=== PATIENT | male | born 1970 | race Caucasian/White ===

== ENCOUNTER → 2018-10-10 11:53 | Outpatient (CLI) | payer OTHER, SELFPAY ==
[2018-09-07 16:05] VITALS: BMI 29.0
--- NOTE | 2018-10-10 11:56 | ECHOD_ITS ---
Reason For Study: Dyspnea/SOB Procedure This was a 2D Doppler, Color Flow transthoracic echocardiogram. Exam performed in department. Left Ventricle Normal LV size. Left ventricular systolic function is normal. The estimated ejection fraction is 55 %. No evidence for diastolic dysfunction. Normal diastology for age. No regional wall motion abnormalities noted. Right Ventricle Normal RV size. Normal systolic function. Atria Normal left atrium. Normal right atrium. Mitral Valve Normal mitral valve. Tricuspid Valve Normal tricuspid valve. Aortic Valve Normal aortic valve. Pulmonic Valve Normal pulmonic valve. Great Vessels Normal aortic root. The pulmonary artery is normal size. Normal inferior vena cava. Pericardium/Pleural No pericardial effusion. MMode/2D Measurements & Calculations LVIDd: 5.0 cm IVSd: 0.99 cm LA dimension: 3.4 cm LVIDs: 3.4 cm LVPWd: 0.88 cm RVDd: 3.8 cm FS: 33.1 % LAV(MOD-bp): 52.5 ml LA A4 area: 17.7 cm2 RA A4 area: 17.7 cm2 LAV(MOD-bp) Indexed: 23.2 ml/m2 LAV(MOD-sp2): 55.6 ml LAV(MOD-sp4): 47.2 ml Time Measurements MV dec time: 0.28 sec Doppler Measurements & Calculations MV E max celestino: 64.9 cm/sec Lat Peak E' Celestino: 13.7 cm/sec Med Peak E' Celestino: 11.5 cm/sec MV A max celestino: 49.4 cm/sec E/E' lat: 4.8 E/E' med: 5.7 MV E/A: 1.3 MV V2 max: 76.4 cm/sec MV P1/2t max celestino: 77.6 cm/sec Ao V2 max: 107.4 cm/sec MV max P.3 mmHg MV P1/2t: 113.9 msec Ao max P.6 mmHg MV V2 mean: 42.3 cm/sec MV dec slope: 199.7 cm/sec2 MV mean P.85 mmHg MVA(P1/2t): 1.9 cm2 MV V2 VTI: 26.0 cm LV V1 max: 101.5 cm/sec PA V2 max: 107.9 cm/sec LV V1 max P.1 mmHg Interpretation Summary Normal LV size. Left ventricular systolic function is normal. The estimated ejection fraction is 55 %. No evidence for diastolic dysfunction. Normal diastology for age. Ordering Physician: Hugo Serrato Referring Physician: Zak Jennings M.D. Performed By: Timothy Dueñas RCS
--- NOTE | 2018-10-10 13:54 | STRESSREP ---
Stress Test Report Exercise stress test. 47-year-old man with a history of chest pain per Stress protocol: Resting EKG demonstrates normal sinus rhythm with a rate of 60 bpm normal intervals are noted resting blood pressures 122/78 mmHg. Patient exercised according to regular Gopal protocol for total duration of 12 minutes the maximum heart rate attained was 142 bpm which was 81% of maximum predicted heart rate the maximum workload was 13.4 metabolic equivalents. At rest there were no ST or T wave changes noted suggest ischemia peak exercise upsloping ST changes only were noted no clinical angina was noted the resting blood pressures 122/78 peak blood pressures 160/70 mmHg. The test was terminated due to leg fatigue. No clinical angina or shortness of breath was present. Conclusion: 1 exercise stress test with no EKG criteria for ischemia at high workload Excellent functional capacity. No clinical angina noted No arrhythmias noted.
== END ==
PROVIDERS: Family Provider Internal Medicine; PCP Internal Medicine; Referring Provider Internal Medicine Cardiovascular Disease; Visit Provider Internal Medicine Cardiovascular Disease
DX: R06.09 Other forms of dyspnea (principal); R06.02 Shortness of breath
CPT/HCPCS: 93017; 93306

== ENCOUNTER → 2018-10-28 08:06 | Outpatient (CLI) | payer OTHER, SELFPAY ==
[2018-09-07 16:05] VITALS: BMI 29.0
[2018-10-28 09:10] LABS: AST(SGOT) 18 U/L (15-37); Alanine Aminotransfer ALT/SGPT 23 U/L (16-61); Albumin, Serum 3.9 g/dL (3.2-5.0); Alkaline Phosphatase 38 U/L (45-117); Anion Gap 6 (5-15); BUN 16 mg/dL (7-18); BUN/Creat Ratio 11.7 RATIO (10-20); Bilirubin, Direct 0.16 mg/dL (0.00-0.30); Calcium,Total 8.7 mg/dL (8.5-10.1); Chloride 108 mmol/L (98-107); Cholesterol 227 mg/dL (200); Creatinine, Serum 1.37 mg/dL (0.70-1.30); EST Glomerular Filtration Rate 59 mL/min (>60); Est Glom Filt Rate - Afr Amer 72 mL/min (>60); Globulin 3.4 g/dL (2.2-4.2); Glucose 82 mg/dL (74-106); High Density Lipoprotein 46 mg/dL; Magnesium 2.2 mg/dL (1.6-2.6); Potassium 4.3 mmol/L (3.5-5.1); Protein, Total 7.3 g/dL (6.4-8.2); Sodium Level 140 mmol/L (136-145); Thyroid Stim Hormone (TSH) 3.73 uIU/mL (0.358-3.74); Triglycerides 108 mg/dL; Very Low Density Lipoprotein 22 mg/dL (5-40)
== END ==
PROVIDERS: Family Provider Internal Medicine; PCP Internal Medicine; Referring Provider Internal Medicine Cardiovascular Disease; Visit Provider Internal Medicine Cardiovascular Disease
DX: E78.5 Hyperlipidemia, unspecified (principal); R06.09 Other forms of dyspnea
CPT/HCPCS: 36415; 80048; 80061; 80076; 83735; 83880; 84443

== ENCOUNTER 2021-03-17 07:09 | Outpatient (CLI) | payer OTHER, SELFPAY ==
[2021-03-17 10:58] LABS: AST(SGOT) 20 U/L (15-37); Alanine Aminotransfer ALT/SGPT 27 U/L (16-61); Alkaline Phosphatase 40 U/L (45-117); Bilirubin, Direct 0.16 mg/dL (0.00-0.30); Cholesterol 244 mg/dL (200); Globulin 3.7 g/dL (2.2-4.2); High Density Lipoprotein 44 mg/dL; Protein, Total 7.7 g/dL (6.4-8.2); Triglycerides 129 mg/dL; Very Low Density Lipoprotein 26 mg/dL (5-40)
== END 2021-03-17 23:59 | disposition short-term general hospital (02) ==
LOC: MTLAB 07:24
PROVIDERS: PCP Internal Medicine; Referring Provider Internal Medicine Cardiovascular Disease; Visit Provider Internal Medicine Cardiovascular Disease
DX: E78.00 Pure hypercholesterolemia, unspecified (principal)
CPT/HCPCS: 36415; 80061; 80076

== ENCOUNTER → 2021-08-06 | Outpatient (CLI) | payer OTHER, SELFPAY ==
[2021-08-06 10:29] LABS: AST(SGOT) 19 U/L (15-37); Alanine Aminotransfer ALT/SGPT 28 U/L (16-61); Alkaline Phosphatase 36 U/L (45-117); Bilirubin, Direct 0.19 mg/dL (0.00-0.30); Cholesterol 218 mg/dL (200); Globulin 3.5 g/dL (2.2-4.2); High Density Lipoprotein 50 mg/dL; Protein, Total 7.5 g/dL (6.4-8.2); Triglycerides 116 mg/dL; Very Low Density Lipoprotein 23 mg/dL (5-40)
== END | disposition home or self-care (01) ==
LOC: MTLAB 07:02
PROVIDERS: PCP Internal Medicine; Referring Provider Internal Medicine Cardiovascular Disease; Visit Provider Internal Medicine Cardiovascular Disease
DX: E78.00 Pure hypercholesterolemia, unspecified (principal)
CPT/HCPCS: 36415; 80061; 80076

== ENCOUNTER → 2021-11-20 | Outpatient (CLI) | payer OTHER, SELFPAY ==
[2021-11-20 10:01] LABS: Hematocrit 41.8 % (40-54); Hemoglobin 14.7 g/dL (13.0-16.5); Mean Corp Hgb Conc 35.2 g/dL (32-36); Mean Corpuscular Hgb 31.7 pg (27.0-32.0); Mean Corpuscular Volume 90.1 fL (80-94); Mean Platelet Vol. 9.8 fl (6.2-12.0); Platelet Count 280 K/mm3 (150-450); RBC Distribution Width CV 12.4 % (11.6-14.6); RBC Distribution Width SD 40.6 fl (35.1-43.9); Red Blood Count 4.64 M/mm3 (4.6-6.2); White Blood Count 4.7 K/mm3 (4.4-11.0)
[2021-11-20 10:39] LABS: BUN 23 mg/dL (7-18); BUN/Creat Ratio 16.8 RATIO (10-20); Creatinine, Serum 1.37 mg/dL (0.70-1.30); EST Glomerular Filtration Rate 59 mL/min (>60); Est Glom Filt Rate - Afr Amer 71 mL/min (>60); Glucose 93 mg/dL (74-106); Protein, Total 7.7 g/dL (6.4-8.2)
[2021-11-20 10:40] LABS: ALB/GLOB Ratio 1.1 RATIO (0.9-2.4); AST(SGOT) 20 U/L (15-37); Alanine Aminotransfer ALT/SGPT 33 U/L (16-61); Alkaline Phosphatase 42 U/L (45-117); Anion Gap 9 (5-15); Calcium,Total 9.1 mg/dL (8.5-10.1); Chloride 107 mmol/L (98-107); Cholesterol 214 mg/dL (200); Globulin 3.7 g/dL (2.2-4.2); High Density Lipoprotein 46 mg/dL; PSA,Total - Annual Screen 2.14 ng/mL (0.00-4.00); Potassium 4.1 mmol/L (3.5-5.1); Sodium Level 140 mmol/L (136-145); Triglycerides 127 mg/dL; Very Low Density Lipoprotein 25 mg/dL (5-40)
[2021-11-20 10:56] LABS: Hepatitis C Antibody Non-Reactive (Nonreactive)
== END | disposition home or self-care (01) ==
PROVIDERS: PCP Internal Medicine; Referring Provider Internal Medicine; Visit Provider Internal Medicine
DX: Z00.00 Encounter for general adult medical examination without abnormal findings (principal); Z11.59 Encounter for screening for other viral diseases; Z11.4 Encounter for screening for human immunodeficiency virus [HIV]; Z12.5 Encounter for screening for malignant neoplasm of prostate
CPT/HCPCS: 36415; 80053; 80061; 84153; 84403; 85027; 86803; G0103

== ENCOUNTER 2021-12-15 08:45 | Day surgery (SDC) | payer OTHER, SELFPAY ==
[2021-12-15] MEDS: Lactated Ringers 1,000 ML 15 ML IV (09:00)
[2021-12-15 09:04] VITALS: BP 136/80; BMI 29.1
--- NOTE | 2021-12-15 10:00 | HP.PCM_ITS ---
HPI - General General Date of Admission: 12/15/21 Date of Service: 12/15/21 HPI Narrative PAULA LOBATO, is a 51 M who presents today for screening colonoscopy. He is not have any abdominal pain. He is not have any cramping. He is not any chest pain or shortness of breath. His only past medical history is mild hypercholesterolemia. He is not having any problems with his bowels. He denies any bleeding per rectum. All other 16 review of systems are negative except as per positive mentioned HPI. [facility] Medical History Alcohol use Cardiology follow-up encounter History of echocardiogram History of pain when walking History of stress test Hyperlipidemia Non-smoker Tinnitus, right Wears contact lenses Home Medications atorvastatin 10 mg tablet 10 mg PO .3 times a weeks #60 tabs 03/17/21 [Rx Last Taken Unknown] Allergy/AdvReac Type Severity Reaction Status Date / Time No Known Allergies Allergy Verified 12/15/21 09:04 Family History Grandfather Myocardial infarction age 55 Father Cancer Mother Diabetes Surgical History H/O arthroscopic knee surgery History of open reduction and internal fixation (ORIF) procedure History of reconstruction of anterior cruciate ligament tear Social History Smoking Status: Never smoker alcohol intake: current alcohol intake frequency: other Alcohol type: beer ROS Review of Systems ROS Unobtainable: other Constitutional Constitutional: Denies fatigue, fever(s), poor appetite, weight gain or weight loss ENT HEENT: Denies mouth lesions Cardiovascular Cardiovascular: Denies abdominal bloating, abdominal edema or abdominal pain Respiratory/Chest Respiratory/Chest: Denies change in mental status, change in phlegm color, chest congestion or chest tightness Gastrointestinal Gastrointestinal: Denies belching, bloating, change in bowel habits, change in stool character, chewing difficulty, coffee ground emesis, constipation, cramping, diarrhea, dyspepsia, dysphagia, early satiety, excessive flatus, fecal incontinence, heartburn, hematemesis, hematochezia, hemorrhoids, loose stools, melena, nausea, odynophagia, rectal bleeding, tenesmus, vomiting or weight changes Genitourinary Genitourinary: Denies abdominal discomfort, burning urination or itching Musculoskeletal Musculoskeletal: Reports as per HPI; Denies muscle weakness or myalgias Integumentary Integumentary: Denies jaundice Neurologic Neurologic: Denies lack of coordination or weakness Psychiatric Psychiatric: Denies confusion, depression, memory loss, mood swings, paranoia or suicidal ideation Endocrine Endocrinology: Denies systems reviewed and no addt'l complaints, except as documented Hematologic/Lymphatic Hematologic/Lymphatic: Denies anemia, easy bleeding, easy bruising or lymphadenopathy Allergic/Immunologic Allergic/Immunologic: Denies systems reviewed and no addt'l complaints, except as documented Vital Signs Vital Signs Vital Signs: 12/15/21 09:04 12/15/21 09:04 Temperature Source Temporal Respiratory Pattern Normal Blood Pressure 136/80 H Blood Pressure Mean 98 Blood Pressure Source Monitor Blood Pressure Position Semi-Fowlers Blood Pressure Location Left Arm Oxygen Delivery Method Room Air Weight Weight: 227 lb 1.218 oz Body Mass Index (BMI) 29.1 Physical Exam Const alert General Appearance: cooperative Orientation / Consciousness: oriented to person HEENT hearing grossly normal bilaterally Head and Scalp: normal to inspection Face and Sinus: face symmetric Nose: external nose normal Mouth: oral and palatal mucosa normal Eyes conjunctivae normal General Eye: normal appearance of both eyes Neck full ROM General: normal visual inspection Lymph Lymphatic: no lymphadenopathy noted Chest inspection of chest normal and palpation of chest normal Chest: symmetrical chest wall rise Resp normal respiratory effort Effort and Inspection: able to speak in complete sentences Cardio regular rate GI non-distended Percussion: normal to percussion Rectal Exam: deferred Neuro Speech: speech normal Gait (Neuro): normal gait Assessment & Plan Assessment/Plan (1) Encounter for screening for malignant neoplasm of colon: PLAN: He was explained alternatives, risk, benefits including not withstanding bleeding, infection, sepsis, perforation, need for emergent turn to . He will have an ASA of 1.
--- NOTE | 2021-12-15 10:24 | OP.COLON_ITS ---
Patient Name: Ar Catalan Procedure Date: 12/15/2021 9:59 AM Date of : 1970 Age: 51 Procedure: Colonoscopy Indications: Screening for colorectal malignant neoplasm Providers: Harpal Cruz DO Medicines: Monitored Anesthesia Care Patient Profile: This is a 51 year old male. Refer to note in patient chart for documentation of history and physical. Last Colonoscopy: none. The patient's first colonoscopy is today. Complications: No immediate complications. Procedure: Pre-Anesthesia Assessment: - Prior to the procedure, a History and Physical was performed, and patient medications and allergies were reviewed. The patient is competent. The risks and benefits of the procedure and the sedation options and risks were discussed with the patient. All questions were answered and informed consent was obtained. Patient identification and proposed procedure were verified by the physician in the pre-procedure area. Mental Status Examination: alert and oriented. Airway Examination: normal oropharyngeal airway and neck mobility. Respiratory Examination: clear to auscultation. CV Examination: normal. Prophylactic Antibiotics: The patient does not require prophylactic antibiotics. Prior Anticoagulants: The patient has taken no previous anticoagulant or antiplatelet agents. ASA Grade Assessment: II - A patient with mild systemic disease. After reviewing the risks and benefits, the patient was deemed in satisfactory condition to undergo the procedure. The anesthesia plan was to use monitored anesthesia care (MAC). Immediately prior to administration of medications, the patient was re-assessed for adequacy to receive sedatives. The heart rate, respiratory rate, oxygen saturations, blood pressure, adequacy of pulmonary ventilation, and response to care were monitored throughout the procedure. The physical status of the patient was re-assessed after the procedure. After I obtained informed consent, the scope was passed under direct vision. Throughout the procedure, the patient's blood pressure, pulse, and oxygen saturations were monitored continuously. The colonoscope was introduced through the anus and advanced to the cecum, identified by appendiceal orifice and ileocecal valve. The colonoscopy was performed without difficulty. The patient tolerated the procedure well. The quality of the bowel preparation was good. Scope In: 10:10:30 AM Scope Withdrawal Time 0 hours 6 minutes 37 seconds Scope Out: 10:19:37 AM Total Procedure Duration Time 0 hours 9 minutes 7 seconds Findings: The perianal and digital rectal examinations were normal. A few small-mouthed diverticula were found in the recto-sigmoid colon and sigmoid colon. The exam was otherwise without abnormality on direct and retroflexion views. Impression: - Diverticulosis in the recto-sigmoid colon and in the sigmoid colon. - The examination was otherwise normal on direct and retroflexion views. - No specimens collected. Recommendation: - Discharge patient to home. - Resume previous diet. - Continue present medications. - Repeat colonoscopy in 10 years for screening purposes. Procedure Code(s): --- Professional --- G0121, Colorectal cancer screening; colonoscopy on individual not meeting criteria for high risk CPT copyright 2017 [employer]. All rights reserved. The codes documented in this report are preliminary and upon hr receptionist review may be revised to meet current compliance requirements. Harpal Cruz DO 12/15/2021 10:23:54 AM This report has been signed electronically. Number of Addenda: 0 Note Initiated On: 12/15/2021 9:59 AM
[2021-12-15 10:25] VITALS: BP 136/80; BP 89/53; PULSE 67; RESP 16; TEMP 36.7; O2SAT 98
--- NOTE | 2021-12-15 10:25 | OP.CCLET_ITS ---
12/15/2021 Zak Jennings [address] [place] [address] Re : Colonoscopy procedure for Ar Catalan Dear Dr. Jennings This procedure was performed on Wednesday, December 15, 2021. My impressions and recommendations are as follows: Impressions : - Diverticulosis in the recto-sigmoid colon and in the sigmoid colon. - The examination was otherwise normal on direct and retroflexion views. - No specimens collected. Recommendations : - Discharge patient to home. - Resume previous diet. - Continue present medications. - Repeat colonoscopy in 10 years for screening purposes. My findings are described in the full procedure note, which is enclosed. If I can be of further assistance, please feel free to contact me at . Sincerely, Harpal Cruz, 12/15/2021 10:23:54 AM This report has been signed electronically.
[2021-12-15 10:30] VITALS: BP 111/68; BP 136/80; PULSE 60; RESP 16; O2SAT 98
[2021-12-15 10:35] VITALS: BP 109/71; BP 136/80; PULSE 54; RESP 16; O2SAT 98
[2021-12-15 10:40] VITALS: BP 120/90; BP 136/80; PULSE 60; RESP 16; TEMP 36.4; O2SAT 99
[2021-12-15 11:01] VITALS: BP 136/80
== END 2021-12-15 11:02 | disposition home or self-care (01) ==
LOC: EN 08:47 → AC 08:48
PROVIDERS: PCP Internal Medicine; Referring Provider Internal Medicine; Visit Provider Internal Medicine Gastroenterology
PROC: 0DJD8ZZ Inspection of Lower Intestinal Tract, Via Natural or Artificial Opening Endoscopic (ICD-10-PCS; CPT 45378; principal; 2021-12-15 09:40)
DX: Z12.11 Encounter for screening for malignant neoplasm of colon (principal); K57.30 Diverticulosis of large intestine without perforation or abscess without bleeding; E78.00 Pure hypercholesterolemia, unspecified; Z79.899 Other long term (current) drug therapy
CPT/HCPCS: G0121; J7120; J2405

== ENCOUNTER → 2022-04-13 | Outpatient (CLI) | payer OTHER, SELFPAY ==
--- NOTE | 2022-04-13 15:56 | MRI_ITS ---
INDICATION: Hip and back pain. Pain in left leg. EXAMINATION: MRI - MR Spine Lumbar W/O Contrast TECHNIQUE: Multiplanar and multisequence MR images of the lumbar spine without contrast. IV Contrast Dosage and Agent: None. COMPARISON: None. FINDINGS: VERTEBRAE: Normal bone marrow signal. No fracture or acute compression deformity. Mild chronic superior endplate degenerative change at L3 L5 and S1. Normal lumbar spine alignment. CORD: Normal position and signal intensity of the conus medullaris. Conus medullaris at T12-L1. L1/L2: Normal disc height and morphology. Normal spinal canal, lateral recesses and neuroforamina. L2/L3: Normal disc height and morphology. Normal spinal canal, lateral recesses and neuroforamina. L3/L4: Circumferential disc bulge with mild ligamentum flavum hypertrophy, together causing minimal spinal canal narrowing, mild bilateral lateral recess narrowing with disc likely approximating the L4 nerve rootlets, and mild bilateral neural foraminal stenosis. L4/L5: Minimal circumferential disc bulge with mild ligamentum flavum hypertrophy and facet arthropathy together causing minimal spinal canal narrowing. Mild left lateral recess narrowing with disc likely approximating the left L5 nerve rootlets. Mild bilateral neural foraminal stenosis. L5/S1: Minimal posterior disc bulge with mild bilateral facet hypertrophy together causing no significant spinal canal stenosis or lateral recess narrowing. Mild bilateral lateral recess narrowing.. SOFT TISSUES: Unremarkable. MRI/Spine Lumbar (Routine) IMPRESSION: Mild multilevel spondylosis as above. Correlate with distribution of symptoms. Electronically Signed: Juan Francisco Izquierdo MD at 6:53 EST ,
== END | disposition home or self-care (01) ==
PROVIDERS: PCP Internal Medicine; Visit Provider Family Medicine
DX: Z03.89 Encounter for observation for other suspected diseases and conditions ruled out (principal)
CPT/HCPCS: 72148

== ENCOUNTER → 2022-10-22 | Outpatient (CLI) | payer OTHER, SELFPAY ==
[2022-10-22 18:43] LABS: AST(SGOT) 22 U/L (15-37); Alanine Aminotransfer ALT/SGPT 32 U/L (16-61); Albumin, Serum 4.3 g/dL (3.2-5.0); Alkaline Phosphatase 44 U/L (45-117); Bilirubin, Direct 0.19 mg/dL (0.00-0.30); Cholesterol 198 mg/dL (200); Globulin 3.6 g/dL (2.2-4.2); High Density Lipoprotein 53 mg/dL; Protein, Total 7.9 g/dL (6.4-8.2); Triglycerides 121 mg/dL; Very Low Density Lipoprotein 24 mg/dL (5-40)
== END | disposition home or self-care (01) ==
LOC: MTLAB 15:53
PROVIDERS: PCP Internal Medicine; Visit Provider Internal Medicine Cardiovascular Disease
DX: E78.5 Hyperlipidemia, unspecified (principal)
CPT/HCPCS: 36415; 80061; 80076

== ENCOUNTER → 2023-12-21 | Outpatient (CLI) | payer OTHER, SELFPAY ==
--- OUTSIDE RECORDS SUMMARY | 2023-12-21 07:06 | XMS RPT_ITS | CCD ---
Author Organization [facility] ion [facility] Care Team Providers Care Manager Insurance Name Role Phone Fast, Blanca A Unavailable Zahira, Fidelia Unavailable Unavailable Zak Anand MD Primary Care Provider [phone] Zak Anand MD Primary Care Provider [phone] Zak Anand MD Primary Care Provider [phone] Fast DO, Blanca A Unavailable Zahira ALVA, Fidelia Unavailable Unavailable Slarb RESIDENTIAL SALES REP, Lavern Unavailable Unavailable Fast DO, Blanca A Unavailable FAST, BLANCA A Attending Unavailable FAST, BLANCA A Primary Care Unavailable ZAK ANAND Primary Care Unavailable CHARLES MAKI Referring Unavailable ZAK ANAND Primary Care Unavailable SURI DANIEL Referring Unavailable ZAK ANAND Primary Care Unavailable SURI DANIEL Referring Unavailable ZAK ANAND Primary Care Unavailable SURI DANIEL Attending Unavailable ZAK ANAND Primary Care Unavailable CHARLES MAKI Attending Unavailable Zak Anand MD Primary Care Provider ZAK ANAND Primary Care Unavailable JOSUÉ CHANDLER Referring Unavailable JOSUÉ CHANDLER Attending Unavailable MILTON OVALLE Attending Unavailable ZAK ANAND Primary Care Unavailable JOSUÉ CHANDLER Referring Unavailable JOSUÉ CHANDLER Admitting Unavailable Zak Anand MD Primary Care Provider [phone] Medications Current Medications Medication Drug Class(es) Dates Sig (Normalized) Sig (Original) atorvastatin (8 sources) HMG-CoA Reductase Inhibitor take 1 tablet by mouth three times weekly atorvastatin calcium (LIPITOR ORAL) Take by mouth. Take 1 tablet three times weekly. Active take 1 tablet by yesenia th three times weekly atorvastatin calcium (LIPITOR ORAL) Take by mouth. Take 1 tablet three times weekly. 0 Active Comment on above: Take by mouth. Take 1 tablet three times weekly. meloxicam 15 mg oral tablet (6 sources) Nonsteroidal Anti-inflammatory Drug Start: take 1 tablet by mouth once daily at mealtime meloxicam (MOBIC) 15 mg tablet Take 1 tablet by mouth once daily. With food. 90 tablet 2 09/07/2023 Active Start: 09-14-2022 End: 09-07-2023 take 1 tablet by mouth once daily at mealtime meloxicam (MOBIC) 15 mg tablet Take 1 tablet by mouth once daily. With food. 90 tablet 2 09/14/2022 09/07/2023 Discontinued Start: 12-10-2021 take 1 tablet by yesenia th once daily at mealtime meloxicam (MOBIC) 15 mg tablet Take 1 tablet by mouth once daily. With food. 30 tablet 3 12/10/2021 Active Comment on above: Take 1 tablet by yesenia th once daily. With food. polyethylene glycol 3350 590534 mg / potassium chloride 2980 mg / sodium bicarbonate 6720 mg / sodium chloride 5840 mg / sodium sulfate 51312 mg powder for oral solution (1 source) Osmotic Laxative Start: 10-30-2021 End: 10-30-2021 peg 3350-electrolytes (COLYTE) 240-22.72-6.72 -5.84 gram solution Indications: Special screening for malignant neoplasms, colon Take 4,000 mL by mouth one time only for 1 dose. 4000 mL 0 10/30/2021 10/30/2021 Active Comment on above: Take 4,000 mL by yesenia th one time only for 1 dose. Problems Active Problems Problem Classification Problem Date Documented Da te Episodic/Chronic Administrative/social admission (4 sources) Patient encounter status; Translations: [Travel advice encounter] 06-30-2021 Episodic Disorders of lipid metabolism (17 sources) Hyperlipidemia; Translations: [Other hyperlipidemia] Onset: 05-10-2017 05-10-2017 Chronic Immunizations and screening for infectious disease (8 sources) Contact with and (suspected) exposure to other viral communicable diseases; Translations: [Patient encounter status] 02-12-2020 Episodic Osteoarthritis (4 sources) Arthritis of hip; Translations: [Unilateral primary osteoarthritis, unspecified hip] Onset: 09-05-2022 Chronic Other connective tissue disease (5 sources) Hip joint prosthesis present; Translations: [Presence of left artificial hip joint] Onset: 06-08-2023 05-25-2023 Chronic Other connective tissue disease (2 sources) Presence of left artificial hip joint; Translations: [Presence of left artificial hip joint] Onset: 06-08-2023 Chronic Other non-traumatic joint disorders (3 sources) Hip pain; Translations: [Pain in left hip] Episodic Past or Other Problems Problem Classification Problem Date Documented Da te Episodic/Chronic Other and unspecified benign neoplasm (9 sources) Lipoma of trunk; Translations: [Benign lipomatous neoplasm of skin and subcutaneous tissue of trunk] Onset: 12-17-2014 Resolved: 03-16-2023 12-17-2014 Episodic Other non-traumatic joint disorders (1 source) Pain in left hip; Translations: [Pain in left hip] Onset: 09-04-2022 Episodic Other screening for suspected conditions (not mental disorders or infectious disease) (11 sources) Azotemia; Translations: [Other specified abnormal findings of blood chemistry] Onset: 05-10-2017 Resolved: 03-16-2023 01-19-2019 Episodic Unclassified (1 source) Exposure to SARS virus Unclassified (2 sources) Results Test Name Value Interpretation Reference Range Facility XR HIP LEFT WITH PELVIS 2-3 VIEWS (ROUTINE)on 06-08-2023 XR HIP LEFT WITH PELVIS 2-3 VIEWS (ROUTINE) EXAMINATION: XR HIP LEFT WITH PELVIS 2-3 VIEWS (ROUTINE) 06/08/2023 8:17 AM HISTORY: ORDERING SYSTEM PROVIDED HISTORY: evaluation, TECHNOLOGIST PROVIDED HISTORY: Illness/Other Reason for exam: FU imaging for hip surgery- left -6weeks ago pt states he is feeling great denies any pain or complications at this time Cancer History: n Surgery, RadiationHistory: n Encounter Type: Subsequent/Follow-up Additional signs and symptoms: upright pelvis included per Order ORDERING SYSTEM PROVIDED DIAGNOSIS CODES: Z96.642 Presence of left artificial hip joint IMPRESSION: FINDINGS/ Arthroplasty without complication. [employer]/Ortho-tag Workstation ID: [id number] Dictated by: DOMONIQUE LUIS on WedJun 09, 2023 9:53:27 AM EDT Transcribed by: WILLAM UREÑA on WedJun 09, 2023 10:12:38 AM EDT Finalized by: DOMONIQUE LUIS on WedJun 09, 2023 10:14:[address] [facility] Comment on above: Order Comment: Injur y/Trauma or Illness?:Illness/Other How long have you had these symptoms (acute/chronic)?:Acute Reason for exam?:FU imaging for hip surgery- left -6weeks ago pt states he is feeling great denies any pain or complications at this time History of cancer?:n Surgeries, chemotherapy, or radiation?:n Type of Exam?:Subsequent/Follow-up Additional signs and symptoms?:upright pelvis included per DR. Senia Luong 03-22-2023 CNPN Telephone (INTMWS) AR CATALAN ([id number]) 1970 M Date Time Provider Department 03/22/23 ZAK ANAND INTWS During your visit today, we recorded the following information about you: Gregg Gilliland LPN 03/22/2023 5:06 PM Signed called and asked to have the VIT D lab and x-ray faxed to pt's surgeon Dr. Chandler .. Done. Also mailed most recent copies of lab work to pt. Done. Gregg Gilliland LPN Allergies As of Date: 03/22/2023 (No Known Allergies) Date Reviewed: 03/16/2023 Reviewed by: Suri Daniel APRN.SHALE MINER - Fully Assessed Reason for Visit: Release Of Medical Records [2017] Prescriptions as of 03/22/2023 - meloxicam (MOBIC) 15 mg tablet Take 1 tablet by mouth once daily. With food. - atorvastatin calcium (LIPITOR ORAL) Take by mouth. Take 1 tablet three times weekly. Problem List As Of Date 03/22/2023 Noted Resolved Lipoma of torso [D17.1] 12/17/2014 03/16/2023 Other hyperlipidemia [E78.49] 05/10/2017 Azotemia [R79.89] 05/10/2017 03/16/2023 Primary osteoarthritis of both hips [M16.0] 09/05/2022 Encounter Status:Closed by GREGG GILLILAND on 03/22/23 [facility] Cherise 03-17-2023 CHLOEN Telephone (INTMWS) AR CATALAN ([id number]) 1970 Date Time Provider Department 03/17/23 SURI DANIEL INTLeighannWS During your visit today, we recorded the following information about you: Derek Flanagan Ma 03/17/2023 8:34 AM Signed ----- Message from Suri Daniel APRN.SHALE MINER sent at 03/17/2023 7:36 AM EST ----- Please let the patient know his lab results were all within an acceptable range and chest x-ray was normal. We will fax these along with the pre-op clearance form today Suri Daniel APRN.Derek Bernardo Ma 03/17/2023 8:39 AM Signed Detailed message left on patient's voicemail of results. Advised his pre op forms and all results were faxed as well. Provided number for call back with any questions. Allergies As of Date: 03/17/2023 (No Known Allergies) Date Reviewed: 03/16/2023 Reviewed by: Suri Daniel APRN.SHALE MINER - Fully Assessed Reason for Visit: Forms/results [Other] Prescriptions as of 03/17/2023 - meloxicam (MOBIC) 15 mg tablet Take 1 tablet by mouth once daily. With food. - atorvastatin calcium (LIPITOR ORAL) Take by mouth. Take 1 tablet three times weekly. Problem List As Of Date 03/17/2023 Noted Resolved Lipoma of torso [D17.1] 12/17/2014 03/16/2023 Other hyperlipidemia [E78.49] 05/10/2017 Azotemia [R79.89] 05/10/2017 03/16/2023 Primary osteoarthritis of both hips [M16.0] 09/05/2022 Encounter Status:Closed by DEREK FLANAGAN MA on 03/17/23 Normal [facility] 25(OH)D3 SerPl-ncon 2023 25-hydroxyvitamin D3 [Mass/Vol] 40.5 ng/mL Normal 31.0-80.0 [facility] Comment on above: Order Comment: Andre mac Type: BLOOD SPECIMEN Ordering Facility: [facility] Address: [address] [place] [address] Result Comment: Clas sification of 25 OH Vitamin D status: Deficiency/Insufficiency: < or = 30 ng/ml. Sufficiency/Optimal Levels: 31-80 ng/mL Toxicity: > 100 ng/mL. Test performed by chemiluminescent immunoassay. Performed By: #### 1 989-3 #### [facility] CLIA [id number] [address] [place] [address] [place] CBC panel Auto (Bld)on 03-16 Erythrocyte distribution width (RBC) [Ratio] 12.3 % Normal 11.5-15.0 [facility] Comment on above: Order Comment: Andre mac Type: BLOOD SPECIMEN Ordering Facility: [facility] Address: [address] [place] [address] Performed By: #### 5 8410-2 #### [facility] CLIA [id number] [address] [place] [address] [place] Hematocrit (Bld) [Volume fraction] 43.5 % Normal 39.0-51.0 [facility] Comment on above: Order Comment: Andre mac Type: BLOOD SPECIMEN Ordering Facility: [facility] Address: [address] [place] [address] Performed By: #### 5 8410-2 #### [facility] CLIA [id number] [address] [place] [address] [place] Hemoglobin (Bld) [Mass/Vol] 14.6 g/dL Normal 13.0-17.0 [facility] Comment on above: Order Comment: Speci men Type: BLOOD SPECIMEN Ordering Facility: [facility] Address: [address] [place] [address] Performed By: #### 5 8410-2 #### [facility] CLIA [id number] [address] [place] [address] [place] MCH (RBC) [Entitic mass] 31.1 pg Normal 26.0-34.0 [facility] Comment on above: Order Comment: Speci men Type: BLOOD SPECIMEN Ordering Facility: [facility] Address: [address] [place] [address] Performed By: #### 5 8410-2 #### [facility] CLIA [id number] [address] [place] [address] [place] MCHC (RBC) [Mass/Vol] 33.6 g/dL Normal 30.5-36.0 [facility] Comment on above: Order Comment: Speci men Type: BLOOD SPECIMEN Ordering Facility: [facility] Address: [address] [place] [address] Performed By: #### 5 8410-2 #### [facility] CLIA [id number] [address] [place] [address] [place] MCV (RBC) [Entitic vol] 92.8 fL Normal 80.0-100.0 [facility] Comment on above: Order Comment: Speci men Type: BLOOD SPECIMEN Ordering Facility: [facility] Address: [address] [place] [address] Performed By: #### 5 8410-2 #### [facility] CLIA [id number] [address] [place] [address] [place] Nucleated RBC (Bld) [#/Vol] 10*3/uL Normal <0.01 [facility] Comment on above: Order Comment: Speci men Type: BLOOD SPECIMEN Ordering Facility: [facility] Address: [address] [place] [address] Performed By: #### 5 8410-2 #### [facility] CLIA [id number] [address] [place] [address] [place] Platelet mean volume (Bld) [Entitic vol] 9.6 fL Normal 9.0-12.7 [facility] Comment on above: Order Comment: Speci men Type: BLOOD SPECIMEN Ordering Facility: [facility] Address: [address] [place] [address] Performed By: #### 5 8410-2 #### [facility] CLIA [id number] [address] [place] [address] [place] Platelets (Bld) [#/Vol] 254 10*3/uL Normal 150-400 [facility] Comment on above: Order Comment: Speci men Type: BLOOD SPECIMEN Ordering Facility: [facility] Address: [address] [place] [address] Performed By: #### 5 8410-2 #### [facility] CLIA [id number] [address] [place] [address] [place] RBC (Bld) [#/Vol] 4.69 10*6/uL Normal 4.20-6.00 [facility] Comment on above: Order Comment: Speci men Type: BLOOD SPECIMEN Ordering Facility: [facility] Address: [address] [place] [address] Performed By: #### 5 8410-2 #### [facility] CLIA [id number] [address] [place] [address] [place] WBC (Bld) [#/Vol] 4.14 10*3/uL Normal 3.70-11.00 [facility] Comment on above: Order Comment: Speci men Type: BLOOD SPECIMEN Ordering Facility: [facility] Address: [address] [place] [address] Performed By: #### 5 8410-2 #### [facility] CLIA [id number] [address] [place] [address] [place] CNOVon 03-16-2023 CNOV Office Visit (INTMWS ) AR CATALAN ([id number]) 1970 M Date Time Provider Department 03/16/23 8:00 AM SURI DANIEL INTMWS During your visit today, we recorded the following information about you: Pulse Respiration Blood pressure Weight 68/minute 16/minute 134/78 106.6 kg Height 1.86 m Suri Daniel, BRAKESHOE REPAIRER.SHALE MINER 03/16/2023 9:17 AM Signed CC: Patient presents with: Pre-Op Exam HPI Ar Catalan is a 52 year old male who presents today for pre-op evaluation. Surgical Procedure: Left hip remodeling arthroplasty Date of Procedure: 04/23/23 Surgeon: Josué Chandler MD PAT date: NA Diabetes No Hypertension requiring medication No Congestive Heart Failure No Current Smoker within 1 Year No COPD/asthma No MELIDA No Dialysis No Acute renal failure No Steroid use for chronic condition No Disseminated cancer No Review of Systems Constitutional: Negative for chills, diaphoresis, fatigue, fever and unexpected weight change. HENT: Negative for trouble swallowing. Respiratory: Negative for cough, shortness of breath and wheezing. Cardiovascular: Negative for chest pain, palpitations and leg swelling. Gastrointestinal: Negative for abdominal pain, blood in stool, constipation, diarrhea, nausea and vomiting. Genitourinary: Negative for decreased urine volume, difficulty urinating, hematuria and urgency. Musculoskeletal: Negative for back pain, myalgias and neck pain. Skin: Negative for pallor. Neurological: Negative for dizziness, tremors, syncope, weakness, light-headedness and headaches. Hematological: Negative for adenopathy. Does not bruise/bleed easily. Psychiatric/Behavioral: Negative for dysphoric mood and sleep disturbance. The patient is not nervous/anxious. PAST MEDICAL HISTORY Diagnosis Date Azotemia 05/10/2017 Lipoma of torso 12/17/2014 Other hyperlipidemia 05/10/2017 Primary osteoarthritis of both hips 09/05/2022 PAST SURGICAL HISTORY Procedure Laterality Date KNEE ARTHROSCOPY Right 12/07/14 repair meniscus PAST SURGICAL HISTORY OF Right 2011 ACL Reconstruction PAST SURGICAL HISTORY OF Right 1994 ORIF right tib fractures, hardware removed. ALLERGIES Patient has no known allergies. MEDICATIONS meloxicam (MOBIC) 15 mg tablet Take 1 tablet by mouth once daily. With food. atorvastatin calcium (LIPITOR ORAL) Take by mouth. Take 1 tablet three times weekly. FAMILY HISTORY Problem Relation Age of Onset Diabetes Mother Kidney Disease Mother Cancer Father neuroendocrine No Known Problems Brother Coronary Artery Disease Maternal Grandfather [place] at age 55 Social History Tobacco Use Smoking status: Never Smokeless tobacco: Never Vaping Use Vaping Use: Never used Substance Use Topics Alcohol use: Yes Alcohol/week: 1.0 standard drink of alcohol Types: 1 Cans of Beer (12oz) per week Comment: occasional Beer Drug use: No BP 134/78 Pulse 68 Resp 16 Ht 186 cm (6' 1.23 ) Wt 106.6 kg (235 lb) SpO2 96% BMI 30.81 kg/m? Physical Exam Vitals reviewed. Constitutional: Appearance: Normal appearance. HENT: Right Ear: Tympanic membrane normal. Left Ear: Tympanic membrane normal. Mouth/Throat: Mouth: Mucous membranes are moist. Pharynx: Oropharynx is clear. Eyes: Conjunctiva/sclera: Conjunctivae normal. Neck: Thyroid: No thyroid mass, thyromegaly or thyroid tenderness. Cardiovascular: Rate and Rhythm: Normal rate and regular rhythm. Pulses: Normal pulses. Heart sounds: Normal heart sounds. No murmur heard. Musculoskeletal: Cervical back: Neck supple. Right lower leg: No edema. Left lower leg: No edema. Lymphadenopathy: Cervical: No cervical adenopathy. Neurological: Mental Status: He is alert. Diagnoses/Plan 1. Pre-operative evaluation EKG today normal sinus rhythm Check CMP, CBC, chest x-ray per pre-op requirements There is no known pertinent medical condition which may affect tabitha-operative course VELAZQUEZ risk: Patient is scheduled for a intermediate-risk procedure. Risk of 0% calculated using the NSQIP surgical risk calculator ASA class: ASA 1- Normal healthy patient Functional status: Independent The patient is medically optimized for surgery - ECG COMPLETE - CBC - COMP METABOLIC PANEL - VITAMIN D 25 HYDROXY - XR CHEST 2V FRONTAL/LAT 2. Other hyperlipidemia - ICD9: 272.4, ICD10: E78.49 recheck - LIPID PANEL BASIC Suri Daniel APRN.SHALE MINER Allergies As of Date: 03/16/2023 (No Known Allergies) Date Reviewed: 03/16/2023 Reviewed by: Suri Daniel APRN.SHALE MINER - Fully Assessed Reason for Visit: Pre-Op Exam [87] Primary Visit Diagnosis:Preop exam for internal medicine [Z01.818] Other Visit Diagnosis:Other hyperlipidemia [E78.49] Order(s):ECG COMPLETE [ECG01] Order #: [id number] CBC [SQCBC] Order #: [id number] FUTURE COMP METABOLIC PANEL [SQCMP] Order (more content not included)... Normal [facility] Comprehensive metabolic 2000 panelon 03-16-2023 Albumin [Mass/Vol] 4.7 g/dL Normal 3.9-4.9 [facility] Comment on above: Order Comment: Andre mac Type: BLOOD SPECIMEN Ordering Facility: [facility] Address: [address] [place] [address] Performed By: #### 1 989-3 #### [facility] CLIA [id number] [address] [place] [address] [place] ALP [Catalytic activity/Vol] 37 U/L Low 38-113 [facility] Comment on above: Order Comment: Speci men Type: BLOOD SPECIMEN Ordering Facility: [facility] Address: [address] [place] [address] Performed By: #### 1 989-3 #### [facility] CLIA [id number] [address] [place] [address] [place] ALT [Catalytic activity/Vol] 17 U/L Normal 10-54 [facility] Comment on above: Order Comment: Speci men Type: BLOOD SPECIMEN Ordering Facility: [facility] Address: [address] [place] [address] Performed By: #### 1 989-3 #### [facility] CLIA [id number] [address] [place], [place] [id number] [place] Anion gap [Moles/Vol] 10 mmol/L Normal 9-18 [facility] Comment on above: Order Comment: Speci men Type: BLOOD SPECIMEN Ordering Facility: [facility] Address: [address] [place] [address] Performed By: #### 1 989-3 #### [facility] CLIA [id number] [address] [place] [address] [place] AST [Catalytic activity/Vol] 22 U/L Normal 14-40 [facility] Comment on above: Order Comment: Speci men Type: BLOOD SPECIMEN Ordering Facility: [facility] Address: [address] [place] [address] Performed By: #### 1 989-3 #### [facility] CLIA [id number] [address] [place] [address] [place] Bilirubin [Mass/Vol] 0.9 mg/dL Normal 0.2-1.3 [facility] Comment on above: Order Comment: Speci men Type: BLOOD SPECIMEN Ordering Facility: [facility] Address: [address] [place] [address] Performed By: #### 1 989-3 #### [facility] CLIA [id number] [address] [place] [address] [place] Calcium [Mass/Vol] 9.8 mg/dL Normal 8.5-10.2 [facility] Comment on above: Order Comment: Speci men Type: BLOOD SPECIMEN Ordering Facility: [facility] Address: [address] [place] [address] Performed By: #### 1 989-3 #### [facility] CLIA [id number] [address] [place] [address] [place] Chloride [Moles/Vol] 105 mmol/L Normal 97-105 [facility] Comment on above: Order Comment: Speci men Type: BLOOD SPECIMEN Ordering Facility: [facility] Address: [address] [place] [address] Performed By: #### 1 989-3 #### [facility] CLIA [id number] [address] [place] [address] [place] CO2 [Moles/Vol] 25 mmol/L Normal 22-30 [facility] Comment on above: Order Comment: Speci men Type: BLOOD SPECIMEN Ordering Facility: [facility] Address: [address] [place] [address] Performed By: #### 1 989-3 #### [facility] CLIA [id number] [address] [place] [address] [place] Creatinine [Mass/Vol] 1.34 mg/dL High 0.73-1.22 [facility] Comment on above: Order Comment: Speci men Type: BLOOD SPECIMEN Ordering Facility: [facility] Address: [address] [place] [address] Performed By: #### 1 989-3 #### [facility] CLIA [id number] [address] [place] [address] [place] Creatinine and Glomerular filtration rate.predicted panel (S/P/Bld) 64 mL/min/1.73m??? Normal >=60 [facility] Comment on above: Order Comment: Speci men Type: BLOOD SPECIMEN Ordering Facility: [facility] Address: [address] [place] [address] Result Comment: Hannah mated Glomerular Filtration Rate (eGFR) is calculated using the 2020 CKD-EPI creatinine equation. This equation utilizes serum creatinine, sex, and age as parameters. The creatinine assay has traceable calibration to isotope dilution-mass spectrometry. Refer to KDIGO guidelines for clinical interpretation. In patients with unstable renal function, e.g. those with acute kidney injury, the eGFR may not accurately reflect actual GFR. Performed By: #### 1 989-3 #### [facility] CLIA [id number] [address] [place] [address] [place] Glucose [Mass/Vol] 88 mg/dL Normal 74-99 [facility] Comment on above: Order Comment: Andre mac Type: BLOOD SPECIMEN Ordering Facility: [facility] Address: [address] [place] [address] Result Comment: The [place] [employer] (ADA) provides guidance for cutoff values for fasting glucose and random glucose. The ADA defines fasting as no caloric intake for at least 8 hours. Fasting plasma glucose results between 100 to 125 mg/dL indicate increased risk for diabetes (prediabetes). Fasting plasma glucose results greater than or equal to 126 mg/dL meet the criteria for diagnosis of diabetes. In the absence of unequivocal hyperglycemia, results should be confirmed by repeat testing. In a patient with classic symptoms of hyperglycemia or hyperglycemic crisis, random plasma glucose results greater than or equal to 200 mg/dL meet the criteria for diagnosis of diabetes. Reference: Standards of Medical Care in Diabetes 2016, [place] [employer]. Diabetes Care. 2016.39(Suppl 1). Performed By: #### 1 989-3 #### [facility] CLIA [id number] [address] [place] [address] [place] Potassium [Moles/Vol] 4.7 mmol/L Normal 3.7-5.1 [facility] Comment on above: Order Comment: Andre mac Type: BLOOD SPECIMEN Ordering Facility: [facility] Address: [address] [place], [place] [id number] Performed By: #### 1 989-3 #### [facility] CLIA [id number] [address] [place] [address] [place] Protein [Mass/Vol] 7.3 g/dL Normal 6.3-8.0 [facility] Comment on above: Order Comment: Andre mac Type: BLOOD SPECIMEN Ordering Facility: [facility] Address: [address] [place] [address] Performed By: #### 1 989-3 #### [facility] CLIA [id number] [address] [place] [address] [place] Sodium [Moles/Vol] 140 mmol/L Normal 136-144 [facility] Comment on above: Order Comment: Speci men Type: BLOOD SPECIMEN Ordering Facility: [facility] Address: [address] [place] [address] Performed By: #### 1 989-3 #### [facility] CLIA [id number] [address] [place] [address] [place] Urea nitrogen [Mass/Vol] 22 mg/dL Normal 9-24 [facility] Comment on above: Order Comment: Speci men Type: BLOOD SPECIMEN Ordering Facility: [facility] Address: [address] [place] [address] Performed By: #### 1 989-3 #### [facility] CLIA [id number] [address] [place] [address] [place] ECG COMPLETEon 03-16-2023 ECG COMPLETE Ventricular Rate : 6 4 BPM Atrial Rate : 64 BPM P-R Interval : 176 ms QRS Duration : 86 ms Q-T Interval : 412 ms QTC Calculation(Bazett) : 425 ms Calculated P Troy : 59 degrees Calculated R Troy : 56 degrees Calculated T Troy : 37 degrees NORMAL SINUS RHYTHM NORMAL ECG Confirmed by JAGRUTI TINOCO D.O. ([id number]) on 03/30/2023 12:38:08 PM NAME : AR CATALAN PID : [id number] : 1970 Gender : Male Race : ORD : [id number] Procedure Date : Mar 16 2023 07:55:35 Edit Date : Mar 30 2023 12:38:12 Diagnosis: NORMAL SINUS RHYTHM NORMAL ECG Confirmed by JAGRUTI TINOCO D.O. ([id number]) on 03/30/2023 12:38:08 PM Test Reason : Z01.818 Preop exam for internal medicine Location : 185 : [facility] Overread By : JAGRUTI TINOCO D.O. Edited By : JAGRUTI TINOCO D.O. Referred By : N OLDER, Acquired by : Es FLANAGAN, Normal [facility] Lipid 1996 panelon 4 Cholesterol [Mass/Vol] 187 mg/dL Normal <200 [facility] Comment on above: Order Comment: Speci men Type: BLOOD SPECIMEN Ordering Facility: [facility] Address: [address] [place] [address] Result Comment: <200 mg/dL, Desirable 200-239 mg/dL, Borderline high >239 mg/dL, High Performed By: #### 1 989-3 #### [facility] CLIA [id number] [address] [place] [address] [place] Cholesterol in HDL [Mass/Vol] 45 mg/dL Normal >39 [facility] Comment on above: Order Comment: Speci men Type: BLOOD SPECIMEN Ordering Facility: [facility] Address: [address] [place] [address] Result Comment: 40-5 9 mg/dL, Acceptable >59 mg/dL, High: Negative risk factor for coronary heart disease <40 mg/dL, Low: Positive risk factor for coronary heart disease Performed By: #### 1 989-3 #### [facility] CLIA [id number] [address] [place] [address] [place] Cholesterol in LDL [Mass/Vol] 125 mg/dL High <100 [facility] Comment on above: Order Comment: Speci men Type: BLOOD SPECIMEN Ordering Facility: [facility] Address: [address] [place] [address] Result Comment: <100 mg/dL, Optimal 100-129 mg/dL, Near optimal/above optimal 130-159 mg/dL, Borderline high 160-189 mg/dL, High >189 mg/dL, Very high Secondary prevention optimal LDL Cholesterol levels are recommended to be < 70 mg/dL Performed By: #### 1 989-3 #### [facility] CLIA [id number] [address] [place] [address] [place] Cholesterol in LDL/Cholesterol in HDL [Mass ratio] 2.78 {ratio} High <2.54 [facility] Comment on above: Order Comment: Andre mac Type: BLOOD SPECIMEN Ordering Facility: [facility] Address: [address] [place] [address] Result Comment: Jero bates: 1. National Cholesterol Education Program ATP III Guideline At-A-Glance Quick Desk Reference: National Heart, Lung, and Blood [place]. National Institutes of Health. 2001: NIH Publication No. 01-3305. 2. An International Atherosclerosis Society position paper: global recommendations for the management of dyslipidemia: executive summary, Atherosclerosis. 2014: 232(2):410-413. Performed By: #### 1 989-3 #### [facility] CLIA [id number] [address] [place] [address] [place] Cholesterol in VLDL [Mass/Vol] 17 mg/dL Normal <30 [facility] Comment on above: Order Comment: Andre mac Type: BLOOD SPECIMEN Ordering Facility: [facility] Address: [address] [place] [address] Performed By: #### 1 989-3 #### [facility] CLIA [id number] [address] [place] [address] [place] Cholesterol non HDL [Mass/Vol] 142 mg/dL High <130 [facility] Comment on above: Order Comment: Andre mac Type: BLOOD SPECIMEN Ordering Facility: [facility] Address: [address] [place] [address] Result Comment: <130 mg/dL, Optimal 130-159 mg/dL, Near optimal/above optimal 160-189 mg/dL, Borderline high 190-219 mg/dL, High >219 mg/dL, Very high Secondary prevention optimal non HDL Cholesterol levels are recommended to be <100 mg/dL Performed By: #### 1 989-3 #### [facility] CLIA [id number] [address] [place] [address] [place] Cholesterol.total /Cholesterol in HDL [Mass ratio] 4.16 {ratio} Normal <5.10 [facility] Comment on above: Order Comment: Speci men Type: BLOOD SPECIMEN Ordering Facility: [facility] Address: [address] [place] [address] Performed By: #### 1 989-3 #### [facility] CLIA [id number] [address] [place] [address] [place] FASTING TIME 12 hrs Normal [facility] Comment on above: Order Comment: Speci men Type: BLOOD SPECIMEN Ordering Facility: [facility] Address: [address] [place] [address] Performed By: #### 1 989-3 #### [facility] CLIA [id number] [address] [place] [address] [place] Triglyceride [Mass/Vol] 87 mg/dL Normal <150 [facility] Comment on above: Order Comment: Speci men Type: BLOOD SPECIMEN Ordering Facility: [facility] Address: [address] [place] [address] Result Comment: <150 mg/dL, Normal 150-199 mg/dL, Borderline high 200-499 mg/dL, High >499 mg/dL, Very high Performed By: #### 1 989-3 #### [facility] CLIA [id number] [address] [place] [address] [place] XR CHEST 2V FRONTAL/LATon XR CHEST 2V FRONTAL/LAT * * *Final Report* * * DATE OF EXAM: Mar 16 2023 8:56AM [id number] [id number] - XR CHEST 2V FRONTAL/LAT / PROCEDURE REASON: Preop exam for internal medicine * * * * Physician Interpretation * * * * EXAMINATION: CHEST RADIOGRAPH (2 VIEW FRONTAL and LATERAL) CLINICAL HISTORY: Preop exam for internal medicine MQ: [id number] EXAM DATE/TIME: 03/16/2023 8:56 AM COMPARISON: No relevant prior studies available. RESULT: Lines, tubes, and devices: None. Lungs and pleura: No consolidation. No lung mass. No pleural effusion. No pneumothorax. Cardiomediastinal silhouette: Normal cardiomediastinal silhouette. Bones and soft tissues: There are degenerative changes in the spine. IMPRESSION: No acute radiographic abnormality. Associate Professor Of Automation: KAYLIN Transcribe Date/Time: Mar 16 2023 8:56A Dictated by : GUADALUPE NARVAEZ MD This examination was interpreted and the report reviewed and electronically signed by: GUADALUPE NARVAEZ MD on Mar 16 2023 8:57AM EST [id number] Normal [facility] 03-05-2023 CNPN Telephone (INTMWS) AR CATALAN ([id number]) 1970 M Date Time Provider Department 03/05/23 ZAK ANAND INTMWS During your visit today, we recorded the following information about you: Derek Flanagan Ma 03/05/2023 1:12 PM Signed Patient's Rubi dropped off a pre op form. Pt having surgery on 04/23/2023 in [place], [place] for LEFT HRA. Forms state pt needs the following completed 3 months prior to surgery and NO LATER than 4 weeks PRIOR to surgery. CMP, CBC, Vitamin D, 25-hydroxy level Chest xray and EKG. Patient has not been seen in the office since 10/30/2021. LM with patient's to return call. He will need a 40 minute pre op exam scheduled in the office. Forms will be addressed at that time. Ninfa Ward RN 03/05/2023 2:10 PM Signed Pt's Rubi returned call and Pre-Op appt made for patient. Ninfa Ward RN Allergies As of Date: 03/05/2023 (No Known Allergies) Date Reviewed: 12/10/2021 Reviewed by: Jing Leary Ma - Fully Assessed Reason for Visit: Appointment [186] Cmt: Pre op Prescriptions as of 03/05/2023 - meloxicam (MOBIC) 15 mg tablet Take 1 tablet by mouth once daily. With food. - atorvastatin calcium (LIPITOR ORAL) Take by mouth. Take 1 tablet three times weekly. 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] 12/17/2014 Other hyperlipidemia [E78.49] 05/10/2017 Azotemia [R79.89] 05/10/2017 Primary osteoarthritis of both hips [M16.0] 09/05/2022 Encounter Status:Closed by NINFA WARD on 03/05/23 [facility] CNPMary 11-17-2022 CNPN Telephone (RGWSTR) AR CATALAN ([id number]) 1970 Date Time Provider Department 11/17/22 ROD MANLEY V DO RGWSTR During your visit today, we recorded the following information about you: Ninfa Mackey 11/17/2022 4:43 PM Signed Patient is requesting x-rays of his left hip from 09/04 Celine Horvath PSS 11/18/2022 2:00 PM Signed CD READY FOR [employer]OM[employer]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 With food. - atorvastatin calcium (LIPITOR ORAL) Take by mouth. Take 1 tablet three times weekly. 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] 12/17/2014 Other hyperlipidemia [E78.49] 05/10/2017 Azotemia [R79.89] 05/10/2017 Primary osteoarthritis of both hips [M16.0] 09/05/2022 Encounter Status:Closed by NINFA MACKEY on 11/26/22 Normal [facility] CNOVon 09-04-2022 CNOV Office Visit (ORTHCO ) AR CATALAN ([id number]) 1970 M Date Time Provider Department 09/04/22 9:20 AM CHARLES MAKI During your visit today, we recorded the following information about you: Chrales Maki DO 09/04/2022 2:26 PM Signed CONSULT ORTHOPAEDIC: HIP PRIMARY CARE PHYSICIAN: Zak Anand MD REFERRING PROVIDER: No referring provider defined for this encounter. Subjective: Patient is a 51-year-old male with no significant past medical history who is here for left hip pain that has been present for over 1 year. Patient localizes pain to the anterior groin and also lateral aspect of the hip that does not radiate and no causative factor that he knows of. He is extremely active with waterskiing, basketball and golfing and is now limited secondary to pain. He denies any numbness and tingling his left lower extremity but does feel like his left hip is weaker now. He takes meloxicam for pain relief and has never done physical therapy or intra-articular steroid injection. Physical exam: Overall no significant leg length difference. Nontender palpation of the anterior groin, mild tender palpation of the greater trochanter. ROM: 0 degrees extension approximately 110 degrees of flexion. Less than 5 degrees of internal rotation and approximately 10 to 15 degrees of external rotation. Noticeable anterior groin pain with internal rotation. He also has notable pain with resisted hip flexion and a positive Stinchfield. Motor PF, DF, EHL and FHL intact distally. Sensation is grossly intact in the L1-S1 dermatomes. He has a palpable DP pulse with brisk cap refill. Imaging: XR of the left hip demonstrates significant degenerative osteoarthritis of the left hip with ycaa-xy-unki contact, sclerosis and osteophyte formation. Also notable high offset of the bilateral hips. Plan: Plan for left hip resurfacing. 50% weightbearing postoperatively, anterior hip precautions, no active abduction for 6 weeks. Postoperatively will be prescribed aspirin 81 mg twice daily for 28 days, meloxicam for H0 prophylaxis, Prilosec for GI protection Implants:Dylan DOYLER, ASA, will call with surgical date. ASSESSMENT AND PLAN: Impression: Left Hip Severe Degenerative Osteoarthritis, Primary Ar Catalan has radiograph and physical exam evidence of degenerative joint disease and wishes to pursue surgery. This patient appears to have sufficient symptoms to warrant surgical intervention and is an appropriate candidate for left Hemanth hip resurfacing as evidenced by proximal femoral bone geometry and bone quality are sufficient for hip resurfacing, and the patient would otherwise recieve a conventional primary total hip replacement. We had a lengthy discussion regarding the risk and benefit of surgery, the alternatives, limitations and personnel involved. These included but were not limited to infection, persistent pain, instability, nerve injury, blood clots, and medical complications. We also discussed the pre-operative course, surgery itself and rehabilitation. Tabitha-operative blood management and transfusion issues were discussed, and options clearly outlined. The patient has consented to the use of the banked allogenic blood if medically necessary. The patient has elected to schedule surgery at this time or intends to call the office with a surgical date. Shared decision making occurred while obtaining informed consent. The patient will be scheduled for a pre-operative education class at which time they will have their nasal swab completed and will be given CHG cloths along with the verbal and written instructions for their use.. The patient has been ordered: No orders placed today. CONSULTS: Patient does not require consults for optimization at this time. 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 The problem began limiting activities 7-12 months ago. Currently the pain in the joint is rated at 7 out of 10 with minimal activity. The pain is chronic and is located in the left groin. The pain is described as sharp. Relieving factors include rest. There is no specific incident that brought about this pain. Ar Catalan has no additional complaints. FUNCTIONAL STATUS: Participate in strenuous sport, such as swimming, singles tennis, football, basketball, or skiing (7.50 METs) (more content not included)... Normal [facility] XR HIP 3V PELV+ AP/LAT LTon 09-04-2022 XR HIP 3V PELV+ AP/LAT LT * * *Final Report* * * DATE OF EXAM: Sep 04 2022 9:04AM CRX [id number] - XR HIP 3V PELV+ AP/LAT LT / PROCEDURE REASON: Pain in left hip * * * * Physician Interpretation * * * * PELVIS AND LEFT HIP X-RAYS HISTORY: one year generalized left hip pain, no injury. Pain in left hip TECHNIQUE: AP pelvis and 2 view left hip (3 total films) COMPARISON: 12/10/2021 RESULT: Severe osteoarthritis bilateral hips, more pronounced on the left with dfbw-bu-oikl articulation. No fracture or dislocation is identified involving the left hip or pelvis. Sacroiliac joints and pubic symphysis are maintained. IMPRESSION: Severe osteoarthritis bilateral hips, more pronounced on the left. Associate Professor Of Automation: KAYLIN Transcribe Date/Time: Sep 04 2022 9:10A Dictated by : TAMAR WILDER MD This examination was interpreted and the report reviewed and electronically signed by: TAMAR WILDER MD on Sep 04 2022 9:11AM EST [id number] Normal [facility] XR HIP GENERAL 3V PELV/AP/LA T LEFTon 09-04-2022 [facility] XR Pelvis and Hip - left AP and Lateral frogon 09-04-2022 IMPRESSION: Severe osteoarthritis bilateral hips, more pronounced on the left. Associate Professor Of Automation: KAYLIN Transcribe Date/Time: Sep 04 2022 9:10A Dictated by : TAMAR WILDER MD This examination was interpreted and the report reviewed and electronically signed by: TAMAR WILDER MD on Sep 04 2022 9:11AM EST DIVISION OF RADIOLOGY * * *Final Report* * * DATE OF EXAM: Sep 04 2022 9:04AM CRX [id number] - XR HIP 3V PELV+ AP/LAT LT / PROCEDURE REASON: Pain in left hip * * * * Physician Interpretation * * * * PELVIS AND LEFT HIP X-RAYS HISTORY: one year generalized left hip pain, no injury. Pain in left hip TECHNIQUE: AP pelvis and 2 view left hip (3 total films) COMPARISON: 12/10/2021 RESULT: Severe osteoarthritis bilateral hips, more pronounced on the left with pfyb-fd-tngy articulation. No fracture or dislocation is identified involving the left hip or pelvis. Sacroiliac joints and pubic symphysis are maintained. DIVISION OF RADIOLOGY Provider, [facility] - 09/04/2022 * * *Final Report* * * DATE OF EXAM: Sep 04 2022 9:04AM CRX [id number] - XR HIP 3V PELV+ AP/LAT LT / PROCEDURE REASON: Pain in left hip * * * * Physician Interpretation * * * * PELVIS AND LEFT HIP X-RAYS HISTORY: one year generalized left hip pain, no injury. Pain in left hip TECHNIQUE: AP pelvis and 2 view left hip (3 total films) COMPARISON: 12/10/2021 RESULT: Severe osteoarthritis bilateral hips, more pronounced on the left with cgto-jv-tcvw articulation. No fracture or dislocation is identified involving the left hip or pelvis. Sacroiliac joints and pubic symphysis are maintained. IMPRESSION IMPRESSION: Severe osteoarthritis bilateral hips, more pronounced on the left. Associate Professor Of Automation: PSCB Transcribe Date/Time: Sep 04 2022 9:10A Dictated by : TAMAR WILDER MD This examination was interpreted and the report reviewed and electronically signed by: TAMAR WILDER MD on Sep 04 2022 9:11AM EST [facility] Radiology Study observation (narrative) [facility] XR Pelvis and Hip - left AP and Lateral frogOrdered By: Ccf Provider on 09-04-[address] [facility] [address] CARDIAC SCORINGon 023 CT CARDIAC SCORING Patient Name: AR CATALAN STUDY: CT CARDIAC SCORING; 06/17/2022 5:17 pm INDICATION: Hyperlipidemia, unspecified. COMPARISON: None. ACCESSION NUMBER(S): [id number] ORDERING CLINICIAN: BLANCA BALDWIN TECHNIQUE: Using prospective ECG gating, CT scan of the coronary arteries was performed without intravenous contrast. Coronary calcium scoring was performed according to the method of Agatston. FINDINGS: The score and distribution of calcium in the coronary arteries is as follows: LM , LAD 61.1, LCx , RCA 46.19, Total 107.29 The visualized mid/lower ascending thoracic aorta measures 3.4 cm in diameter. The heart is normal in size. No pericardial effusion is present. No gross evidence of mediastinal or hilar lymphadenopathy or masses is identified. The visualized segments of the lungs are normally expanded. The visualized subdiaphragmatic structures appear intact. IMPRESSION: 1. Coronary artery calcium score of 107.29*. *Coronary artery calcium scoring may be helpful in predicting the risk for future coronary heart disease events. According to the [place] [employer] Foundation Clinical Expert Consensus Task Force, such testing provides important prognostic information in patients with more than one coronary heart disease risk factor. The coronary artery calcium score correlates with the annual risk of a non-fatal myocardial infarction or coronary heart disease . Coronary artery score Annual Risk 0-99 0.4% 100-399 1.3% >400 2.4% These three breakpoints correspond to lower, intermediate and high risk states for future coronary events. Such information should be used, along with appropriate clinical judgment, to make decisions regarding the intensity of risk factor management strategies to treat blood lipids and to modify other non-lipid coronary risk factors. Reference: Pocatello P et al. Circulation. 2007; 115:402-426 Electronically signed by: LALA CARRANZA MD Normal [facility] XR HIP GENERAL 3V PELV/AP/LA T LEFTon 12-10-2021 [facility] ic INHOUSE COVID 19 (ONLY) RAPI D ([id number])Ordered By: Lavern Malik on 06-30-2021 SARS-CoV-2 (COVID-19) RNA SEVERO+probe Ql (Unsp spec) Negative Normal [facility]; [facility] Work Phone: SARS-CoV-2 Antibody, IgGOrde red By: Shell Maker Lockstitch on 02-12-2020 SARS-CoV-2 Antibody, IgG Negative Normal [facility]; [facility] Work Phone: Comment on above: This sample does not contain detectable SARS-CoV-2 IgG antibodies.This negative result does not rule out SARS-CoV-2 infection.Correlation with epidemiologic risk factors and other clinical andlaboratory findings is recommended. Serologic results should not beused as the sole basis to diagnose or exclude recent [id number].This assay was performed using the [employer](R)SARS-CoV-2 S1/S2 IgG assay. Test(s) [id number]-GGDN- CoV-2 Antibody, IgGhas not been FDA cleared or approved. This test hasbeen authorized by FDA under an Emergency Use Authorization(EUA). This test is only authorized for the duration of thedeclaration that circumstances exist justifying the authorizationof emergency use of in vitro diagnostics for detection and/ordiagnosis of COVID-19 under Section 564(b)(1) of the Act, 21U.S.C. 360bbb-3(b)(1), unless the authorization is terminated orrevoked sooner. This test has been authorized only for detectingthe presence of antibodies against SARS-CoV-2, not for any otherviruses or pathogens.PATIENT NOT FASTINGPERFORMED BY: [facility] [facility] [id number] Vital Signs Date Time Vital Sign Value Performing Clinician Faci lity 10-30-2021 08:21-0400 Body height 186.9 cm Zak Anand MD Work Phone: [facility] 10-30-2021 08:21-0400 Body temperature 97 [degF] Zak Anand MD Work Phone: [facility] 10-30-2021 08:21-0400 Body weight 104.78 kg Zak Anand MD Work Phone: [facility] 10-30-2021 08:21-0400 Diastolic blood pressure 76 mm[Hg] Zak Anand MD Work Phone: [facility] 10-30-2021 08:21-0400 Heart rate 64 /min Zak Anand MD Work Phone: [facility] 10-30-2021 08:21-0400 Respiratory rate 16 /min Zak Anand MD Work Phone: [facility] 10-30-2021 08:21-0400 Systolic blood pressure 120 mm[Hg] Zak Anand MD Work Phone: [facility] Encounters Encounter Date Encounter Type Care Provider Facility Start: 09-07-2023 Refill Jay Giron Work Phone: Orthopaedics Start: 06-08-2023 End: 06-12-2023 ambulatory ZAK ANAND [facility] Start: 06-08-2023 End: 06-08-2023 ambulatory Josué Chandler MD Work Phone: [facility] Comment on above: Presence of left art ificial hip joint Start: 05-25-2023 Transcribe Orders Josué timmons MD Work Phone: [facility] Comment on above: Presence of left art ificial hip joint (Primary Dx) Start: 03-16-2023 Encounter for other preprocedural examination ZAK ANAND [facility] Start: 03-16-2023 End: 03-17-2023 ambulatory ZAK Allen CHENG Facility:[facility] Start: 11-17-2022 Telephone encounter Rod Hudson DO Work Phone: Radiology Comment on above: Orders; disk request Start: 09-04-2022 End: 09-04-2022 ambulatory ZAK Allen CHENG Facility:[facility] Start: 09-04-2022 End: 09-04-2022 Patient encounter procedure Charles Maki DO Work Phone: Orthopedics Comment on above: Pain in left hip (Pr imary Dx); Primary osteoarthritis of left hip Start: 09-04-2022 End: 09-04-2022 Subsequent hospital visit by physician Samantha [facility] Work Phone: Radiology Comment on above: Pain in left hip [M2 5.552] Start: 06-17-2022 ambulatory BLANCA BALDWIN Facility:[id number] Start: 06-03-2022 End: 06-03-2022 Annotation/Addendum Blanca Baldwin DO Work Phone: [facility] Start: 03-09-2022 Telephone encounter Zak michaud MD Work Phone: [facility] [place] Comment on above: Patient Question Start: 12-10-2021 End: 12-10-2021 Patient encounter procedure Jay Aiken DO Work Phone: [facility] [place] Comment on above: Arthritis of hip (Pr imary Dx) Start: 12-10-2021 End: 12-10-2021 Subsequent hospital visit by physician Samantha [facility] [place] [facility] Work Phone: Radiology Comment on above: Pain in left hip [M2 5.552] Start: 10-30-2021 End: 10-30-2021 Patient encounter procedure Zak Anand MD Work Phone: [facility] [place] Comment on above: Routine medical exam (Primary Dx); Other hyperlipidemia; Screening for prostate cancer; Screening for HIV without presence of risk factors; Encounter for hepatitis C screening test for low risk patient; Need for influenza vaccination; Special screening for malignant neoplasms, colon Start: 10-30-2021 End: 10-30-2021 Patient encounter status Zak Anand MD Work Phone: [facility] [place] Start: 09-25-2021 Telephone encounter Zak michaud MD Work Phone: [facility] [place] Comment on above: Fax requested Start: 06-30-2021 End: 06-30-2021 Office outpatient visit 5 minutes Blanca Baldwin DO Work Phone: [facility] Start: 02-12-2020 End: 02-12-2020 Phone Encounter Blanca Baldwin [facility] Procedures Date Procedure Procedure Detail Performing Clinician Start: 03-16-2023 Lipid 1996 panel - S eugene or Plasma Jay Aiken V, DO Work Phone: Start: 09-04-2022 Radex hip unilateral with pelvis 2-3 views Charles Maki DO Work Phone: Start: 12-15-2021 Colonoscopy aJy Hope is V, DO Work Phone: Start: 12-10-2021 Radex hip unilateral with pelvis 2-3 views Jay Aiken DO Work Phone: Start: 11-20-2021 Lipid 1996 panel - S eugene or Plasma Rod Manley DO, DO Work Phone: Start: 10-30-2021 INFLUENZA VACCINE QUADRIVALENT 6 MO - 64 YRS IM Zak Anand MD Work Phone: Start: 10-30-2021 Adult depression scr eening assessment Zak Anand MD Work Phone: Start: 02-09-2017 Adult depression scr eening assessment Zak Anand MD Work Phone: Plan of Treatment Date Care Activity Detail Author Start: 12-16-2031 Screening for malignant neoplasm of colon [facility] Start: 03-16-2028 Lipid panel Lipid Screening [facility] Start: 02-09-2027 Tetanus vaccination Tetanus: Every 10yrs [facility] Start: 02-09-2027 Urine microalbumin profile [facility] Start: 11-20-2026 Lipid 1996 panel - Serum or Plasma Lipid Screening [facility] Start: 11-20-2026 LIPID SCREEN LIPID SCREEN [facility] Start: 08-06-2026 LIPID SCREEN LIPID SCREEN [facility] Start: 03-16-2026 Diabetes Screening Diabetes Screening [facility] Start: 11-20-2024 DIABETES SCREEN DIABETES SCREEN [facility] Start: 11-20-2024 Diabetes Screening Diabetes Screening [facility] Start: 03-16-2024 Covid-19 Vaccine ( season) Covid-19 Vaccine ( season) [facility] Comment on above: Postponed from 10/23/2022 (Declined at t his time) Start: 10-24-2023 Covid-19 Vaccine ( season) Covid-19 Vaccine () [facility] Start: 10-24-2023 Influenza vaccination [facility] Start: 06-08-2023 End: 06-08-2023 ambulatory 06/08/2023 8:30 AM EDT Evaluation [facility] [address] [place] [address] Josué Chandler MD [address] [place] [address] Chavo Gupta, ILIANA Discharge Disposition: Home [facility] Start: 02-22-2023 Behavioral Health Screening Behavioral Health Screening [facility] Start: 10-30-2022 Adult depression screening assessment DEPRESSION SCREENING [facility] Start: 10-30-2022 DEPRESSION ASSESSMENT DEPRESSION ASSESSMENT [facility] Comment on above: Postponed from 02/22/2022 (Postponed To Appropriate Date) Start: 10-23-2022 COVID-19 Vaccine ( season) COVID-19 Vaccine ( season) [facility] Start: 10-23-2022 COVID-19 Vaccine () COVID-19 Vaccine ( season) [facility] Start: 10-23-2022 Influenza vaccination [facility] Start: 02-22-2022 Depression Assessment Depression Assessment [facility] Start: 11-18-2021 Administration of herpes zoster vaccine Zoster Vaccines (1 of 2) [facility] Start: 11-18-2021 Screening for malignant neoplasm of colon Flexible sigmoidoscopy [facility] Start: 11-18-2021 SHINGRIX VACCINE (1 of 2) SHINGRIX VACCINE (1 of 2) [facility] Start: 10-31-2021 End: 12-31-2021 CBC panel - Blood by Automated count CBC Lab Routine Routine medical exam Expected: 10/31/2021, Expires: 12/31/2021 [facility] Work Phone: Comment on above: Expected: 10/31/2021, Expires: Start: 10-31-2021 End: 12-31-2021 Comprehensive metabolic 2000 panel - Serum or Plasma COMP METABOLIC PANEL Lab Routine Routine medical exam Expected: 10/31/2021, Expires: 12/31/2021 [facility] Work Phone: Comment on above: Expected: 10/31/2021, Expires: 2 Start: 10-31-2021 End: 12-31-2021 Hepatitis C virus Ab [Presence] in Serum HEP C AB IA W/CONF SCRN Lab Routine Encounter for hepatitis C screening test for low risk patient Expected: 10/31/2021, Expires: 12/31/2021 [facility] Work Phone: Comment on above: Expected: 10/31/2021, Expires: 2 Start: 10-31-2021 End: 12-31-2021 HIV 1+2 Ab [Presence] in Serum or Plasma by Immunoassay HIV 1 2 COMBO(AG/AB),WITH REFLEX TO DIFFERENTIATION Lab Routine Screening for HIV without presence of risk factors Expected: 10/31/2021, Expires: 12/31/2021 [facility] Work Phone: Comment on above: Expected: 10/31/2021, Expires: 2 Start: 10-31-2021 End: 12-31-2021 Lipid 1996 panel - Serum or Plasma LIPID PANEL BASIC Lab Routine Routine medical exam Expected: 10/31/2021, Expires: 12/31/2021 [facility] Work Phone: Comment on above: Expected: 10/31/2021, Expires: 2 Start: 10-31-2021 End: 12-31-2021 PSA/PROSTSPECAG SCRN PSA/PROSTSPECAG SCRN Lab Routine Screening for prostate cancer Expected: 10/31/2021, Expires: 12/31/2021 [facility] Work Phone: Comment on above: Expected: 10/31/2021, Expires: 2 Start: 10-31-2021 End: 12-31-2021 Testosterone [Mass/volume] in Serum or Plasma TESTOSTERONE TOTAL Lab Routine Routine medical exam Expected: 10/31/2021, Expires: 12/31/2021 [facility] Work Phone: Comment on above: Expected: 10/31/2021, Expires: 2 Start: 10-28-2021 DIABETES SCREEN DIABETES SCREEN [facility] Start: 10-23-2021 Influenza vaccination INFLUENZA (#1) [facility] Start: 02-22-2021 DEPRESSION ASSESSMENT DEPRESSION ASSESSMENT [facility] Start: 12-12-2020 COVID-19 VACCINE (2 - Pfizer series) COVID-19 VACCINE (2 - Pfizer series) [facility] Start: 11-07-2020 COVID-19 VACCINE (2 - Pfizer series) COVID-19 VACCINE (2 - Pfizer series) [facility] Start: 02-12-2020 SARS-CoV-2 Antibody, IgG SARS-CoV-2 Antibody, IgG [facility]; [facility] Work Phone: Start: 02-09-2018 Adult depression screening assessment DEPRESSION SCREENING [facility] Start: 11-18-2016 COLOGUARD (FIT-DNA) COLOGUARD (FIT-DNA) [facility] Start: 11-18-2016 Colonoscopy COLONOSCOPY [facility] Start: 11-18-2016 COLORECTAL CANCER SCREENING COLORECTAL CANCER SCREENING [facility] Start: 11-18-[address] COLONOGRAPHY [facility] Start: 11-18-2016 FECAL OCCULT BLOOD FECAL OCCULT BLOOD [facility] Start: 11-18-2016 Screening for malignant neoplasm of colon [facility] Start: 11-18-2016 SIGMOIDOSCOPY SIGMOIDOSCOPY [facility] Start: 11-18-1989 Anxiety Screening Anxiety Screening [facility] Start: 11-18-1989 Depression Screening Depression Screening [facility] Start: 11-18-1989 HEPATITIS C SCREENING HEPATITIS C SCREENING [facility] Start: 11-18-1989 Hepatitis C screening Hepatitis C Screening [facility] Start: 11-18-1989 HIV SCREENING HIV SCREENING [facility] Start: 11-18-1986 HIV screening HIV Screening [facility] Start: 1983 Depression screening using PHQ-9 (Patient Health Questionnaire 9) score Depression Screening (PHQ-2/9) [facility] Start: 11-18-1974 History and physical examination, annual for health maintenance Wellness Visit [facility] Start: 05-18-1972 COVID-19 VACCINE (#1) COVID-19 VACCINE (#1) [facility] Start: 1971 Prostate specific antigen measurement PSA Level [facility] Start: 1971 Screening for malignant neoplasm of colon [facility] Start: 1971 Tetanus vaccination Tetanus: Every 10yrs [facility] End: 10-30-2022 Screening colonoscopy COLONOSCOPY SCREENING Endoscopy Routine Special screening for malignant neoplasms, colon 1 Occurrences starting 10/30/2021 until 10/30/2022 [facility] Work Phone: Comment on above: 1 Occurrences starting 10/30/2021 until 10/30/2022 [facility]; [facility] Work Phone: [facility] Immunizations Immunization Date Immunization Notes Care Provider Fa cility 10-30-2021 influenza, injectabl e, quadrivalent, contains preservative Zak Anand MD Work Phone: [facility] Work Phone: 10-30-2021 influenza virus vaccine, unspecified formulation Rod Manley DO, DO Work Phone: [facility] 12-20-2019 Influenza, injectabl e, Madin [place] Canine Kidney, preservative free, quadrivalent Zak Anand MD Work Phone: [facility] Work Phone: 02-09-2017 tetanus toxoid, redu irina diphtheria toxoid, and acellular pertussis vaccine, adsorbed Zak Anand MD Work Phone: [facility] Payers Date Payer Category Payer Unknown [id number] 2014 Unknown 2014 Unknown MMO MMO [employer] [id number] 2014-Present [phone] [address] [place] [address] O [id number] 2014 Unknown [id number] 1971 Unknown [id number] 1971 Unknown [id number] 1971 Unknown [id number] Unknown [id number] Social History Date Type Detail Facility Start: 12-17-2014 End: 10-30-2021 Tobacco smoking status NHIS Never smoked tobacco [facility] Start: 12-17-2014 End: 10-30-2021 Tobacco use and exposure Smokeless tobacco non-user [facility] Start: 01-19-2019 End: 12-10-2021 Alcohol intake Current drinker of alcohol (finding) [facility] Start: 01-19-2019 End: 09-04-2022 Alcohol intake [facility] Work Phone: Start: 01-18-2019 End: 10-30-2021 History SDOH Alcohol Frequency 3 [facility] Start: 01-18-2019 End: 10-30-2021 History SDOH Alcohol Std Drinks 1 [facility] Start: 12-17-2014 History SDOH Alcohol Comment occasional Beer [facility] Start: 1970 Sex Assigned At Not on file [facility] Start: 10-30-2021 History SDOH Physical Activity DPW 4 [facility] Start: 10-30-2021 History SDOH Physical Activity MPS 2 [facility] Start: 10-20-2021 End: 12-10-2021 Exposure to SARS-CoV-2 (event) Not sure [facility] Work Phone: Start: 10-30-2021 End: 09-04-2022 Alcohol Use Disorder Identification Test - Consumption [AUDIT-C] [facility] Work Phone: How often to you hav e a drink containing alcohol? 2-4 times a month [facility] Work Phone: How many standard dr inks containing alcohol do you have on a typical day? 1 or 2 [facility] Work Phone: How often do you hav e 6 or more drinks on 1 occasion? Never [facility] Work Phone: Adult Depression Scr eening Assessment 0 [facility] Work Phone: Do you feel stress - tense, restless, nervous, or anxious, or unable to sleep at night because your mind is troubled all the time - these days [OSQ] Not at all [facility] Work Phone: Tobacco smoking stat [facility] Tobacco smoking consumption unknown [facility] Clinical Notes 09-25-2021 to 06-08-2023 Milton Ovalle - 06/08/2023 8:30 AM EDTTelephone Encounter - NessakimCelineANATOLY - 11/18/2022 1:59 PM EDTTelephone Encounter - Ramila HernandezWilfredNinfa - 11/17/2022 4:41 PM EDTPatient Instructions Note Date & Type Note Facility 06-08-2023 History of Presen t illness Narrative [facility] Evaluation Today's Date 06/08/2023 Patient Name: Ar Catalan Date of : 1970 Case Name: L hip Resurfacing Functional Diagnosis: 1. Presence of left artificial hip joint Clinical Information: Subjective Referring Diagnosis: L hip resurfacing History of Present Illness Surgery Date: 04/23/2023 Days Post-Op: 46 Subjective History: Pt presented s/p L hip resurfacing procedure conducted on 04/23/2023. Pt reported having degenerative changes within bilateral hip joints. Pt reported no pain coming into evaluation this morning. Pt reported conducting prescribed exercises and reported no pain or issues with those. Pt reported no soreness post exercises the following day. Pt reported incision site is healed and is located towards the posterior region of the L hip joint. Pt reported certain movements have put more pressure on the hip like putting on a sock or getting into his car, but other than that has been doing well. Previous Treatment for this condition: No Previous Imaging: X-ray Overall rating of health: Good Pain Scale Pain location: No pain reported Functional Mobility Status Current Mobility Status: Home: no device Community: no device Current Activity Level: active (within allowed limitations) Social Support: Holiness, social, or cultural considerations to be made aware of before starting treatment: No Home Environment Current Home Environment: Setup: single story house Entry: steps with railing Activities of Daily Living: independent with all Sleep Assessment Preferred sleep position: on side and supine (but notes tenderness with both hips. L hip is increased with either sidelying position) Red Flags: None Comments: Barriers to Care: None Fall risk screening Fallen 2 or more times in the last 12 months: No Injured as a result of a fall in the last 12 months: No Holiness, social, or cultural considerations to be made aware of before starting treatment: No Hip Right Hip Range of Motion: Flexion Active: 78 Extension Active: 13 Abduction Active: 32 Muscle Strength: Flexion: 4+ Abduction: 4+ Adduction: 4+ Left Hip Tenderness: piriformis and greater trochanter Range of Motion: Flexion Active: 75 Passive: 100 Extension Active: 5 Abduction Active: 37 Passive: 50 Adduction Passive: 30 IR Passive: 15 Muscle Strength: Flexion: 4 Abduction: 4 Adduction: 4+ Leg length was unremarkable Gait noted no signs of trendelenburg ASLR (no pain noted by pt): 4-/5 MMT Treatments: Physical Therapy Exercise Log - 06/08/23 0851 OTHER Precautions/Contraindications Supervising PT: Ramez Notes Eval: 8:51 - 9:22 Therapeutic Exercise (74277) Intervention Reviewed HEP exercises and progressions of 6 weeks post op w/ patient and was in agreement to continue at home (PT reviewed proper hip precautions to continue to be aware of) PT Treatment Times Total Treatment Time 31 Goals: Physical Therapy Ortho Goals: MOBILITY: Patient will be able to ambulate for 1 hour or more within the community or at home without difficulty in 2 weeks. MOBILITY: Patient will be able to ambulate on uneven surfaces without difficulty in 2 weeks. CHANGING MAINTAINING POSITON: Patient will be able to change position in bed without pain or difficulty in 3 weeks SELF CARE: Patient will be able to complete ADL's including bathing, dressing, and hair care without difficulty or discomfort in 3 weeks. IMPAIRMENT: Improve MMT of Left Hip Flexion from 4/5 to 4+/5 in 4 weeks IMPAIRMENT: Improve MMT of Left Hip Abduction from 4/5 to 4+/5 in 4 weeks IMPAIRMENT: Improve AROM of Left Hip Extension from 5 degrees to 10 degrees in 2 weeks. IMPAIRMENT: Improve AROM of Left Hip Flexion from 75 degrees to 100 degrees in 4 weeks. OTHER: Patient will increase FOTO score to at least 83 to show MDC/MCII and expected functional outcome in 4 weeks. OTHER: Patient will be able to properly demonstrate independence with HEP in 1 week. CPT Code 02429 Low 38874 Moderate 98594 High History 0 1-2 3+ Comorbidities: chronic pain and prior surgical history, Personal factors: chronicity or severity of the current condition Examination of body systems (elements of body structures & functions, activity limitations, and/or participation restrictions) 1-2 elements 3+ elements 4+ elements See below clinical impression Clinical Presentation Stable Evolving Unstable As evidenced by reproduction of or changes in symptoms with certain movements and improving symptom level since surgical intervention Decision Making Low (FOTO >/= 69) Moderate (FOTO 34 - 68) High (FOTO </= 33) FOTO score= 73 Pt is a 52 y.o. male who presents to PT services s/p L hip resurfacing procedure conducted on 04/23/2023. Upon assessment, pt has been found with the following impairments: decreased ROM, decreased strength, and pain. The documented impairments result in the following functional limitations: regular PA/exercise, sporting activities, functional mobility, walking, recreational activities, quality of life, running, bending, sleep, and driving. The pt would benefit from skilled PT services focused on the above listed impairments and limitations in order to safely progress pt to their desired level of function. Pt to be discharged from OP PT services if/when goals are met, if they fail to make progress with conservative management in PT, if their level of progress plateaus, or if they do not maintain compliance with attendance or HEP. At this time, it is my clinical judgment that services are medically necessary. Plan of Care Frequency of Visits: 2 times per week Duration: 4 weeks Interventions: Therapeutic Exercise (52756), Neuromuscular Re-Education (27106), Manual Therapy (08538), Therapeutic/ Functional Activities (65437), Gait Training (01670), Aquatic Therapy (60630), Hot/Cold Pack (38617), Electrical Stimulation - Unattended (95550), Ultrasound (22535), and Vasopneumatic (67888) Rehab Potential: good *Pt plans to perform indp HEP at home. Pt to return as needed. Patient Education Provided Pt was educated on the benefits of therapy and importance of compliance with sessions and HEP for rehabilitation. Pt was also educated on treatment diagnosis, POC, and frequency/duration of treatment. Milton Ovalle, SPT No licensure found in state: [place] Treatment was directed and supervised by the co-signing therapist who was directly present for the entire session. Chavo Gupta PT State License, [id number] documented in this encounter [facility] 03-16-2023 Note HNO ID: [id number] Author: COMPA GRESHAM RT(R) Service: ? Author Type: Audio Visual Technician Type: Progress Notes Filed: 03/16/2023 08:54 Note Text: Radiology Service Progress Note PATIENT NAME: Ar Catalan DATE OF SERVICE: March 16, 2023 TIME: 8:48 AM PATIENT IDENTITY VERIFICATION COMPLETED USING TWO (2) IDENTIFIERS: Name and Date of confirmed by patient verbally. FALL SCREENING: Has the patient had 2 falls in the last year or 1 fall with injury or currently using an Ambulatory Assistive Device (Walker, Cane, Wheelchair, Crutches, etc.)? No PATIENT GENDER DATA: Male PATIENT RELEVANT IMPLANT DATA REVIEWED: Yes RADIOLOGY DEPARTMENT: General X-ray: Exam(s) Completed: Chest X-Ray PERIPHERAL IV DATA: Not applicable SIGNED BY: RT Jose(R) March 16, 2023 8:48 AM [facility] 03-16-2023 Note HNO ID: [id number] Author: SURI DANIEL APRN.SHALE MINER Service: ? Author Type: Nurse Practitioner Type: Progress Notes Filed: 03/16/2023 09:17 Note Text: CC: Patient presents with: Pre-Op Exam HPI Ar Catalan is a 52 year old male who presents today for pre-op evaluation. Surgical Procedure: Left hip remodeling arthroplasty Date of Procedure: 04/23/23 Surgeon: Josué Chandler MD PAT date: NA Diabetes No Hypertension requiring medication No Congestive Heart Failure No Current Smoker within 1 Year No COPD/asthma No MELIDA No Dialysis No Acute renal failure No Steroid use for chronic condition No Disseminated cancer No Review of Systems Constitutional: Negative for chills, diaphoresis, fatigue, fever and unexpected weight change. HENT: Negative for trouble swallowing. Respiratory: Negative for cough, shortness of breath and wheezing. Cardiovascular: Negative for chest pain, palpitations and leg swelling. Gastrointestinal: Negative for abdominal pain, blood in stool, constipation, diarrhea, nausea and vomiting. Genitourinary: Negative for decreased urine volume, difficulty urinating, hematuria and urgency. Musculoskeletal: Negative for back pain, myalgias and neck pain. Skin: Negative for pallor. Neurological: Negative for dizziness, tremors, syncope, weakness, light-headedness and headaches. Hematological: Negative for adenopathy. Does not bruise/bleed easily. Psychiatric/Behavioral: Negative for dysphoric mood and sleep disturbance. The patient is not nervous/anxious. PAST MEDICAL HISTORY Diagnosis Date Azotemia 05/10/2017 Lipoma of torso 12/17/2014 Other hyperlipidemia 05/10/2017 Primary osteoarthritis of both hips 09/05/2022 PAST SURGICAL HISTORY Procedure Laterality Date KNEE ARTHROSCOPY Right 12/07/14 repair meniscus PAST SURGICAL HISTORY OF Right 2011 ACL Reconstruction PAST SURGICAL HISTORY OF Right 1994 ORIF right tib fractures, hardware removed. ALLERGIES Patient has no known allergies. MEDICATIONS meloxicam (MOBIC) 15 mg tablet Take 1 tablet by mouth once daily. With food. atorvastatin calcium (LIPITOR ORAL) Take by mouth. Take 1 tablet three times weekly. FAMILY HISTORY Problem Relation Age of Onset Diabetes Mother Kidney Disease Mother Cancer Father neuroendocrine No Known Problems Brother Coronary Artery Disease Maternal Grandfather [place] at age 55 Social History Tobacco Use Smoking status: Never Smokeless tobacco: Never Vaping Use Vaping Use: Never used Substance Use Topics Alcohol use: Yes Alcohol/week: 1.0 standard drink of alcohol Types: 1 Cans of Beer (12oz) per week Comment: occasional Beer Drug use: No BP 134/78 Pulse 68 Resp 16 Ht 186 cm (6' 1.23 ) Wt 106.6 kg (235 lb) SpO2 96% BMI 30.81 kg/m? Physical Exam Vitals reviewed. Constitutional: Appearance: Normal appearance. HENT: Right Ear: Tympanic membrane normal. Left Ear: Tympanic membrane normal. Mouth/Throat: Mouth: Mucous membranes are moist. Pharynx: Oropharynx is clear. Eyes: Conjunctiva/sclera: Conjunctivae normal. Neck: Thyroid: No thyroid mass, thyromegaly or thyroid tenderness. Cardiovascular: Rate and Rhythm: Normal rate and regular rhythm. Pulses: Normal pulses. Heart sounds: Normal heart sounds. No murmur heard. Musculoskeletal: Cervical back: Neck supple. Right lower leg: No edema. Left lower leg: No edema. Lymphadenopathy: Cervical: No cervical adenopathy. Neurological: Mental Status: He is alert. Diagnoses/Plan 1. Pre-operative evaluation EKG today normal sinus rhythm Check CMP, CBC, chest x-ray per pre-op requirements There is no known pertinent medical condition which may affect tabitha-operative course VELAZQUEZ risk: Patient is scheduled for a intermediate-risk procedure. Risk of 0% calculated using the NSQIP surgical risk calculator ASA class: ASA 1- Normal healthy patient Functional status: Independent The patient is medically optimized for surgery - ECG COMPLETE - CBC - COMP METABOLIC PANEL - VITAMIN D 25 HYDROXY - XR CHEST 2V FRONTAL/LAT 2. 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 Author Type: Physician Type: Progress Notes Filed: 09/04/2022 2:26 PM Note Text: CONSULT ORTHOPAEDIC: HIP PRIMARY CARE PHYSICIAN: Zak Anand MD REFERRING PROVIDER: No referring provider defined for this encounter. Subjective: Patient is a 51-year-old male with no significant past medical history who is here for left hip pain that has been present for over 1 year. Patient localizes pain to the anterior groin and also lateral aspect of the hip that does not radiate and no causative factor that he knows of. He is extremely active with waterskiing, basketball and golfing and is now limited secondary to pain. He denies any numbness and tingling his left lower extremity but does feel like his left hip is weaker now. He takes meloxicam for pain relief and has never done physical therapy or intra-articular steroid injection. Physical exam: Overall no significant leg length difference. Nontender palpation of the anterior groin, mild tender palpation of the greater trochanter. ROM: 0 degrees extension approximately 110 degrees of flexion. Less than 5 degrees of internal rotation and approximately 10 to 15 degrees of external rotation. Noticeable anterior groin pain with internal rotation. He also has notable pain with resisted hip flexion and a positive Stinchfield. Motor PF, DF, EHL and FHL intact distally. Sensation is grossly intact in the L1-S1 dermatomes. He has a palpable DP pulse with brisk cap refill. Imaging: XR of the left hip demonstrates significant degenerative osteoarthritis of the left hip with [id number]-[id number] contact, sclerosis and osteophyte formation. Also notable high offset of the bilateral hips. Plan: Plan for left hip resurfacing. 50% weightbearing postoperatively, anterior hip precautions, no active abduction for 6 weeks. Postoperatively will be prescribed aspirin 81 mg twice daily for 28 days, meloxicam for H0 prophylaxis, Prilosec for GI protection Implants:Dylan AMADOR ASA, will call with surgical date. ASSESSMENT AND PLAN: Impression: Left Hip Severe Degenerative Osteoarthritis, Primary Ar Catalan has radiograph and physical exam evidence of degenerative joint disease and wishes to pursue surgery. This patient appears to have sufficient symptoms to warrant surgical intervention and is an appropriate candidate for left [place] hip resurfacing as evidenced by proximal femoral bone geometry and bone quality are sufficient for hip resurfacing, and the patient would otherwise recieve a conventional primary total hip replacement. We had a lengthy discussion regarding the risk and benefit of surgery, the alternatives, limitations and personnel involved. These included but were not limited to infection, persistent pain, instability, nerve injury, blood clots, and medical complications. We also discussed the pre-operative course, surgery itself and rehabilitation. Tabitha-operative blood management and transfusion issues were discussed, and options clearly outlined. The patient has consented to the use of the banked allogenic blood if medically necessary. The patient has elected to schedule surgery at this time or intends to call the office with a surgical date. Shared decision making occurred while obtaining informed consent. The patient will be scheduled for a pre-operative education class at which time they will have their nasal swab completed and will be given CHG cloths along with the verbal and written instructions for their use.. The patient has been ordered: No orders placed today. CONSULTS: Patient does not require consults for optimization at this time. 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 The problem began limiting activities 7-12 months ago. Currently the pain in the joint is rated at 7 out of 10 with minimal activity. The pain is chronic and is located in the left groin. The pain is described as sharp. Relieving factors include rest. There is no specific incident that brought about this pain. rA Catalan has no additional complaints. FUNCTIONAL STATUS: Participate in strenuous sport, such as swimming, singles tennis, football, basketball, or skiing (7.50 METs) Total Joint Athroplasty - Risk Calculator PREVIOUS TREATMENTS: Medical: OTC NSAIDS for 3 Months or Greater (meloxicam) REVIEW OF SYSTEMS: PAIN ASSESSMENT: See HPI. MUSCULOSKELET (more content not included)... [facility] 09-04-2022 Note HNO ID: [id number] Author: RT William(R) Service: ? Author Type: Technologist Type: Progress Notes Filed: 09/04/2022 9:03 AM Note Text: Radiology Service Progress Note PATIENT NAME: Ar Catalan DATE OF SERVICE: September 04, 2022 TIME: 9:03 AM PATIENT IDENTITY VERIFICATION COMPLETED USING TWO (2) IDENTIFIERS: Name and Date of confirmed by patient verbally. FALL SCREENING: Has the patient had 2 falls in the last year or 1 fall with injury or currently using an Ambulatory Assistive Device (Walker, Cane, Wheelchair, Crutches, etc.)? No PATIENT GENDER DATA: Male PATIENT RELEVANT IMPLANT DATA REVIEWED: Not Applicable RADIOLOGY DEPARTMENT: General X-ray: Exam(s) Completed: Pelvis X-Ray: Pelvis with Hip Left PERIPHERAL IV DATA: Not applicable SIGNED BY: RT William(R) September 04, 2022 9:03 AM [facility] 09-04-2022 Instructions Ever Pompa RN - 09/04/2022 11:03 AM EDT DATE OF SURGERY TBD AT [facility] PRE-ADMISSION TESTING TO CONTACT YOU FOR MEDICAL AND ANESTHESIA CLEARANCE WITHIN 30 DAYS OF YOUR SURGERY [facility] TOTAL JOINT CLASS. TO SCHEDULE PLEASE CALL [facility] TOTAL JOINT CLASS. TO SCHEDULE PLEASE CALL Dr Maki will send prescription for mupirocin (Bactroban) ointment to your pharmacy to use 5 days prior to your surgery. Please apply twice daily for 5 days. Apply 0.5 inch ribbon with cotton swab (Q-tip) to each nostril in the morning and evening for 5 days prior to and including day of surgery. This will help prevent staph infection. documented in this encounter [facility] 09-04-2022 History of Presen t illness Narrative CONSULT ORTHOPAEDIC: HIP PRIMARY CARE PHYSICIAN: Zak Anand MD REFERRING PROVIDER: No referring provider defined for this encounter. Subjective: Patient is a 51-year-old male with no significant past medical history who is here for left hip pain that has been present for over 1 year. Patient localizes pain to the anterior groin and also lateral aspect of the hip that does not radiate and no causative factor that he knows of. He is extremely active with waterskiing, basketball and golfing and is now limited secondary to pain. He denies any numbness and tingling his left lower extremity but does feel like his left hip is weaker now. He takes meloxicam for pain relief and has never done physical therapy or intra-articular steroid injection. Physical exam: Overall no significant leg length difference. Nontender palpation of the anterior groin, mild tender palpation of the greater trochanter. ROM: 0 degrees extension approximately 110 degrees of flexion. Less than 5 degrees of internal rotation and approximately 10 to 15 degrees of external rotation. Noticeable anterior groin pain with internal rotation. He also has notable pain with resisted hip flexion and a positive Stinchfield. Motor PF, DF, EHL and FHL intact distally. Sensation is grossly intact in the L1-S1 dermatomes. He has a palpable DP pulse with brisk cap refill. Imaging: XR of the left hip demonstrates significant degenerative osteoarthritis of the left hip with [id number]-el-uwag contact, sclerosis and osteophyte formation. Also notable high offset of the bilateral hips. Plan: Plan for left hip resurfacing. 50% weightbearing postoperatively, anterior hip precautions, no active abduction for 6 weeks. Postoperatively will be prescribed aspirin 81 mg twice daily for 28 days, meloxicam for H0 prophylaxis, Prilosec for GI protection Implants:Dylan AMADOR ASA, will call with surgical date. ASSESSMENT & PLAN: Impression: Left Hip Severe Degenerative Osteoarthritis, Primary Ar Catalan has radiograph and physical exam evidence of degenerative joint disease and wishes to pursue surgery. This patient appears to have sufficient symptoms to warrant surgical intervention and is an appropriate candidate for left [place] hip resurfacing as evidenced by proximal femoral bone geometry and bone quality are sufficient for hip resurfacing, and the patient would otherwise recieve a conventional primary total hip replacement. We had a lengthy discussion regarding the risk and benefit of surgery, the alternatives, limitations and personnel involved. These included but were not limited to infection, persistent pain, instability, nerve injury, blood clots, and medical complications. We also discussed the pre-operative course, surgery itself and rehabilitation. Tabitha-operative blood management and transfusion issues were discussed, and options clearly outlined. The patient has consented to the use of the banked allogenic blood if medically necessary. The patient has elected to schedule surgery at this time or intends to call the office with a surgical date. Shared decision making occurred while obtaining informed consent. The patient will be scheduled for a pre-operative education class at which time they will have their nasal swab completed and will be given CHG cloths along with the verbal and written instructions for their use.. The patient has been ordered: No orders placed today. CONSULTS: Patient does not require consults for optimization at this time. 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 The problem began limiting activities 7-12 months ago. Currently the pain in the joint is rated at 7 out of 10 with minimal activity. The pain is chronic and is located in the left groin. The pain is described as sharp. Relieving factors include rest. There is no specific incident that brought about this pain. Ar Catalan has no additional complaints. FUNCTIONAL STATUS: Participate in strenuous sport, such as swimming, singles tennis, football, basketball, or skiing (7.50 METs) Total Joint Athroplasty - Risk Calculator PREVIOUS TREATMENTS: Medical: OTC NSAIDS for 3 Months or Greater (meloxicam) REVIEW OF SYSTEMS: PAIN ASSESSMENT: See HPI. MUSCULOSKELETAL: See HPI. Risk Factors for Total Joint Arthroplasty (TJA) Obesity normal High: BMI > 40 Moderate: BMI 30-40 Normal: BMI < 30 Diabetes normal High: A1C > 8 Moderate: A1C 7-8 Normal: A1C < 7 Smoking normal High: Current smoker Normal: Non smoker Anemia normal High: Hgb < 13 (men) N/A: Hgb >= 13 (men) Nutritional Status High Risk High: Alb<3.4, or prealb<15, or serum transferrin<200, or total lymphocyte count<1500 Normal: normal labs COPD normal High: dx of COPD Normal: no dx of COPD MRSA normal High: dx of MRSA or positive lab test Normal: no MRSA CKD normal High: eGFR<60 Moderate: eGFR 60-89 Normal: eGFR>90 Hx of DVT / PE normal High: dx of DVT / PE Normal: no dx of DVT / PE Narcotics Use normal High:NarxCare >=300 Moderate: 100-299 Normal: 0-99 MELIDA normal High: dx of MELIDA N/A: no dx of MELIDA Coagulation normal High:PT Sec>13, or PT INR>1.3, or APTT>32.4, or Plt ct<150k Moderate: on anticoag but none of the above Normal: none Nutritional concerns 51 year old, Last Wt 10/30/21 : 104.8 kg (231 lb) 01/18/19 : 103 kg (227 lb) Albumin Date Value 10/28/2018 3.0 gm/dL 04/14/2017 4.2 g/dL Other Risk Factors None PAST MEDICAL HISTORY Diagnosis Date Azotemia 05/10/2017 Lipoma of torso 12/17/2014 Other hyperlipidemia 05/10/2017 PAST SURGICAL HISTORY Procedure Laterality Date KNEE ARTHROSCOPY Right 12/07/14 repair meniscus PAST SURGICAL HISTORY OF Right 2011 ACL Reconstruction PAST SURGICAL HISTORY OF Right 1994 ORIF right tib fractures, hardware removed. FAMILY HISTORY Problem Relation Age of Onset Diabetes Mother Kidney Disease Mother Cancer Father neuroendocrine No Known Problems Brother Coronary Artery Disease Maternal Grandfather [place] at age 55 Social History Tobacco Use Smoking status: Never Smokeless tobacco: Never Vaping Use Vaping Use: Never used Substance Use Topics Alcohol use: Yes Alcohol/week: 2.5 standard drinks of alcohol Types: 1 Cans of Beer (12oz) per week Comment: occasional Beer Drug use: No ALLERGIES: Patient has no known allergies. MEDICATIONS: meloxicam (MOBIC) 15 mg tablet Take 1 tablet by mouth once daily. With food. atorvastatin calcium (LIPITOR ORAL) Take by mouth. Take 1 tablet three times weekly. PHYSICAL EXAM There were no vitals taken for this visit. All other systems deferred. GENERAL: Appears healthy, well-nourished, no deformities. HABITUS: Normal GAIT: Antalgic to the left HIP EXAM: Left: ROM: Extension: slight flexion contracture Flexion: 100 degrees Internal Rotation: 0 degrees External Rotation: 10 degrees Abduction: 20 degrees Adduction: 10 degrees Strength: Pain with resisted hip flexion Palpation: No tenderness Log roll: painful. Straight leg raise: Positive, reproducing hip symptoms Neurovascular Status: Sensation Intact, Moves foot and ankle up & down, and 2+ dorsalis pedis DATA: Diagnostic tests reviewed for today's visit: Left hip X-Ray: Severe degenerative changes The following conditions were addressed during the office visit today: None SIGNATURE: Charles Maki DO PATIENT NAME: Ar Catalan DATE: September 04, 2022 TIME: 10:27 AM documented in this encounter [facility] 03-11-2022 Miscellaneous Notes Patient Rubi returned call and went over notes below from Dr Anand. said she has to pay out of pocket for the HIV test and not sure why needed done when he has no risk factors. said had colonoscopy about 6 weeks ago at [facility] per Friend was normal. Asked to have records sent to PCP office to update his chart. Called and left a voicemail for the Patient to call back and ask for a nurse to receive the providers message. Sylvia Dowd RN These are HEALTH MAINTENANCE items for screening/prevention for ANY patient. These are recommended (GRADE A) recommendations from the [place] Preventive Service Task Force. HIV SCREENING Never done COLORECTAL CANCER SCREENING Never done COVID-19 VACCINE(2 - Pfizer series) due on 11/07/2020 DIABETES SCREEN due on 10/28/2021 SHINGRIX VACCINE(1 of 2) Never done DEPRESSION ASSESSMENT Never done Since these were done at an outside lab, I updated his records manually so completed ones are not repeated. Only items not completed are colonoscopy, shingles vaccine, and covid vaccine. Vaccines can be completed at his pharmacy. Colonoscopy was ordered. Please let me know if there are other concerns. Pts called in and was upset that provider had placed lab for HIV and Hep C. She states he has been with the same person for 37 years, he has not risk factors. She reports they have to pay out of pocket for it. I looked back on Pts 10/30/21 visit and it had screening for HIV without presence of risk factors and encounter for hepatitis C screening test for low risk patient. She states she would still like to know why provider would order them other than to make money. Please call and advise. documented in this encounter [facility] 12-10-2021 History of Presen t illness Narrative Mr. Catalan is a 51 year old male that presents today complaining of hip problems on the left side for the last 3 months. 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 The pain is described as chronic located in the buttocks, hip, and groin. Patient states that his pain level is a number 3 on a scale of 1-10 Denies low back pain. Patient reports stiffness when first standing. Difficulty putting on socks due to stiffness and pain in the morning. He has tried ibuprofen with no significant improvement ALLERGIES: Patient has no known allergies. MEDICATIONS: Current Outpatient Medications Medication Sig atorvastatin calcium (LIPITOR ORAL) Take by mouth. Take 1 tablet three times weekly. meloxicam (MOBIC) 15 mg tablet Take 1 tablet by mouth once daily. With food. No current facility-administered medications for this visit. MEDICAL HISTORY: PAST MEDICAL HISTORY Diagnosis Date Azotemia 05/10/2017 Lipoma of torso 12/17/2014 Other hyperlipidemia 05/10/2017 SURGICAL HISTORY: PAST SURGICAL HISTORY Procedure Laterality Date KNEE ARTHROSCOPY Right 12/07/14 repair meniscus PAST SURGICAL HISTORY OF Right 2011 ACL Reconstruction PAST SURGICAL HISTORY OF Right 1994 ORIF right tib fractures, hardware removed. FAMILY HISTORY: FAMILY HISTORY Problem Relation Age of Onset Diabetes Mother Kidney Disease Mother Cancer Father neuroendocrine No Known Problems Brother Coronary Artery Disease Maternal Grandfather [place] at age 55 PHYSICAL ASSESSMENT: The Pt walks with a normal gait B/l LE have Nl Alignment The Left hip reveals no hip flexion contracture, 0-100 degrees of flexion, Internal Rotation to 5 degrees in flexion and external rotation to 35 degrees in flexion. Abduction to 35 degrees and adduction to 10 degrees. There is some pain with palpation over the ischial tuberosity or the greater trochanter. The Right hip reveals no hip flexion contracture, 0-100 degrees of flexion, Internal Rotation to 20 degrees in flexion and external rotation to 45 degrees in flexion. Abduction to 45 degrees and adduction to 20 degrees. There is no pain with palpation over the ischial tuberosity or the greater trochanter. EHL 5/5 DF 5/5 PF 5/5 DP Pulses 2/2 PT Pulses 2/2 RADIOGRAPH: degenerative changes in both hips, L>R ASSESSMENT: Bilateral hip Osteoarthritis, L>R PLAN: Discussed options for treatment including aggressive hip conditioning program with handout given for home use. Requested Prescriptions Signed Prescriptions Disp Refills meloxicam (MOBIC) 15 mg tablet 30 tablet 3 Sig: Take 1 tablet by mouth once daily. With food. Discussed further intervention such as intra-articular corticosteroid injection under image guidance, and potential referral for surgical consultation if symptoms fail to improve, or worsen. Jay Aiken DO Patient presents with: Left Hip Pain AMB ROOMING INTAKE FLOWSHEET DATA Risk Screening Do you have concerns about personal safety or safety in the home?: No Pain Pain Level: 3 Pain Location: Hip-Left Description: Aching, Dull, Sharp Duration Amount of Time: 3 Duration Units: Months Frequency: Intermittent Comments: None Patient has tried taking Ibuprofen for the pain and did not help. X-rays done today. documented in this encounter [facility] 12-10-2021 History of Presen t illness Narrative Radiology Service Progress Note PATIENT NAME: Ar Catalan DATE OF SERVICE: December 10, 2021 TIME: 2:57 PM PATIENT IDENTITY VERIFICATION COMPLETED USING TWO (2) IDENTIFIERS: Name and Date of confirmed by patient verbally. FALL SCREENING: Has the patient had 2 falls in the last year or 1 fall with injury or currently using an Ambulatory Assistive Device (Walker, Cane, Wheelchair, Crutches, etc.)? No PATIENT GENDER DATA: Male PATIENT RELEVANT IMPLANT DATA REVIEWED: Yes RADIOLOGY DEPARTMENT: General X-ray: Exam(s) Completed: Pelvis X-Ray: Pelvis with Hip Left PERIPHERAL IV DATA: Not applicable SIGNED BY: RT Jose R(R) December 10, 2021 2:57 PM documented in this encounter [facility] 10-30-2021 Instructions Zak Anand MD - 10/30/2021 8:50 AM EDT Health Information For Patients and the Community How to Prepare for Your Colonoscopy Using Golytely, Nulytely, Trilyte or Colyte Preparations IMPORTANT - Please Read These Instructions at Least 2 Weeks Before Your Colonoscopy [place] Instructions: ?Your bowel must be empty so that your doctor can clearly view your colon. Follow all of the instructions in this handout EXACTLY as they are written. If you do NOT follow the directions for when to start drinking the bowel preparation (see next page), your colonoscopy WILL be cancelled. ?Do NOT eat any solid food the ENTIRE day before your colonoscopy. ?Buy your bowel preparation at least 5 days before your colonoscopy. ?Do NOT mix the solution until the day before your colonoscopy. Designated Decorator Inspector on the Day of Your Exam A responsible family member or friend MUST come with you to your colonoscopy and REMAIN in the endoscopy area until you are discharged! You are NOT ALLOWED to drive, take a taxi or bus, or leave the Endoscopy Center ALONE. If you do not have a responsible regional owner operator truck driver (family member or friend) with you to take you home, your exam cannot be done with sedation and will be cancelled. Medications Some of the medicines you take may need to be stopped or adjusted before your colonoscopy. You MUST call the doctor who ordered any of the following medicines at least 2 weeks before your colonoscopy. ?Blood thinners -- such as Coumadin (warfarin), Plavix (clopidogrel), Ticlid (ticlopidine hydrochloride), Agrylin (anagrelide), Xarelto (Rivaroxaban), Pradaxa (Dabigatran), Eliquis (Apixaban), and Effient (Prasugrel). ?Insulin or diabetes pills. Please call the doctor that monitors your glucose levels. Your insulin dosage may need to be adjusted due to the diet restrictions required with this bowel preparation. (Please bring your diabetes medicines with you on the day of your procedure.) If you take aspirin, take it and ALL other medications prescribed by your doctor. On the day of your colonoscopy, take your medications with a sip of water. Revised 03/2016 1 Five (5) Days Before Your Colonoscopy ?Do NOT take medicines that stop diarrhea -- such as Imodium , Kaopectate , or Pepto Bismol . ?Do NOT take fiber supplements -- such as Metamucil , Citrucel , or Perdiem . ?Do NOT take products that contain iron -- such as multi-vitamins -- (the label lists what is in the products). ?Do NOT take vitamin E. Buy the prescription bowel preparation solution at your local pharmacy or drugstore pharmacy. Three (3) Days Before Your Colonoscopy Do NOT eat high-fiber foods -- such as popcorn, beans, seeds (flax, sunflower, quinoa), multigrain bread, nuts, salad/vegetables, or fresh and dried fruit. One (1) Day Before Your Colonoscopy Only drink clear liquids the ENTIRE DAY before your colonoscopy. Do NOT eat any solid foods. Drink at least 8 ounces of clear liquids every hour after waking up. The clear liquids you can drink include: ?water, apple, or white grape juice; broth; coffee or tea (without milk or creamer); clear carbonated beverages such as kierra clare or lemon-sycuan soda; Gatorade or other sports drinks (not red); Saúl-Aid or other flavored drinks (not red). You may eat plain jello or other gelatins (not red) or popsicles (not red). Do NOT drink alcohol on the day before or the day of the procedure. 2 Revised 03/2016 When to Mix and Drink Your Bowel Prep Follow the instructions on the label. After mixing, place the solution in the refrigerator for a couple of hours before drinking. You may add the flavor packet that came with the bowel preparation. DO NOT add ice, sugar or any flavorings to the solution. Evening Before Your Colonoscopy ?Start drinking the bowel preparation at 6 PM the evening before your colonoscopy. Drink an 8-oz glass of bowel preparation every 10 minutes. You must finish drinking the solution by 9 PM the night before your scheduled procedure. ?You may continue to drink clear liquids only until midnight. Do NOT eat or drink ANYTHING after midnight the night before your procedure or your procedure may be cancelled. This is for your safety and will reduce the risk of having any food or liquid in your stomach move into your lungs (aspiration) during a procedure. If you take aspirin, take it and ALL other prescribed medicines with a sip of water on the day of your colonoscopy. Contact Information: If you are unable to keep your appointment or have any questions about the instructions, please call the facility where the procedure is being performed. Call between the hours of 8:00 AM and 5:00 PM. If you are calling after 5:00 PM, please call Nurse project controller at [phone]. [facility] [address] [place] [id number] Index # [id number] Revised 03/2016 3 Colonoscopy Procedure Overview Please Read Prior to the Procedure What is a Colonoscopy A colonoscopy is an outpatient procedure in which the inside of the large intestine (colon and rectum) is examined. A colonoscopy is commonly used to evaluate gastrointestinal symptoms, such as rectal and intestinal bleeding, abdominal pain, or changes in bowel habits. Colonoscopies are also performed in individuals without symptoms to check for colorectal polyps or cancer. A screening colonoscopy is recommended for anyone 50 years of age and older, and for anyone with parents, siblings or children with a history of colorectal cancer or polyps. What Happens Before a Colonoscopy To have a successful colonoscopy, your bowel must be empty so that your physician can clearly view the colon. To do this, it is very important to read and follow all of the instructions given to you at least 2 weeks BEFORE your exam. If your bowel is not empty, your colonoscopy will not be successful and may have to be repeated. If you feel nauseated or vomit while taking the bowel preparation, wait 30 minutes before drinking more fluid and start with small sips of solution. Some activity (such as walking) or a few soda crackers may help decrease the nausea you are feeling. If the nausea persists, please contact nurse service advocate contact at [phone]. You may experience skin irritation around the anus due to the passage of liquid stools. To prevent and treat skin irritation, you should: ?Apply Vaseline or Desitin ointment to the skin around the anus before drinking the bowel preparation medications. These products can be purchased at any drugstore. ?Wipe the skin after each bowel movement with disposable wet wipes instead of toilet paper. These are found in the toilet paper area of the store. ?Sit in a bathtub filled with warm water for 10 to 15 minutes after you finish passing a stool; after soaking, blot the skin dry with a soft cloth, apply Vaseline or Desitin ointment to the anal area, and place a cotton ball just outside your anus to absorb leaking fluid. What Happens During a Colonoscopy During a colonoscopy, an experienced physician uses a colonoscope (a long, flexible instrument about 1/2 inch in diameter) to view the lining of the colon. The colonoscope is inserted into the rectum and advanced through the large intestine. If necessary during a colonoscopy, small amounts of tissue can be removed for analysis (a biopsy) and polyps can be identified and entirely removed. In many cases, a colonoscopy allows accurate diagnosis and treatment of colorectal problems without the need for a major operation. Revised 03/2016 5 ?You are asked to wear a hospital gown and an IV will be started. ?You are given a pain reliever and a sedative intravenously (in your vein). You will feel relaxed and somewhat drowsy. ?You will lie on your left side, with your knees drawn up towards your chest. ?A small amount of air is used to expand the colon so the physician can see the colon zendejas. ?You may feel mild cramping during the procedure. Cramping can be reduced by taking slow, deep breaths. ?The colonoscope is slowly withdrawn while the lining of your bowel is carefully examined. ?The procedure lasts from 30 minutes to 1 hour. What Happens After a Colonoscopy ?You will stay in a recovery room for observation until you are ready for discharge. ?You may feel some cramping or a sensation of having gas, but this quickly passes. ?If sedation has been given, a responsible family member or friend must drive you home. ?Avoid alcohol, driving, and operating machinery for 24 hours following the procedure. ?Unless otherwise instructed, you may immediately return to your normal diet. We recommend you wait until the day after your procedure to resume normal activities. ?If polyps were removed or a biopsy was taken, the physician performing your colonoscopy will tell you when it is safe to resume taking your blood thinners. ?If a biopsy was taken or a polyp was removed, you may notice a little amount of rectal bleeding for 1 to 2 days after the procedure. If you have a large amount of rectal bleeding, high or persistent fevers, or severe abdominal pain within the next 2 weeks, please go to your local emergency room and call the physician who performed your exam. 6 Revised 03/2016 Copyright 8473-2446 [facility]. All rights reserved. Revised 03/2016 documented in this encounter [facility] 10-30-2021 History of Presen t illness Narrative This note was created using NoteWriter. Subjective Patient presents with: Physical Immunizations: Flu vaccination Ar Catalan was here for a physical. He has been in good health. He followed periodically with Dr. Serrato for preventive cardiology. He was started on lipitor earlier this year. He was here for update preventive care and health maintenance. He noted scant anal bleeding off and on for 3 months. Review of Systems Constitutional: Negative. HENT: Negative. Eyes: Negative. Respiratory: Negative. Cardiovascular: Negative. Gastrointestinal: Positive for anal bleeding. Genitourinary: Negative. Musculoskeletal: Negative. Skin: Negative. Neurological: Negative. Psychiatric/Behavioral: Negative. PAST MEDICAL HISTORY Diagnosis Date Azotemia 05/10/2017 Lipoma of torso 12/17/2014 Other hyperlipidemia 05/10/2017 PAST SURGICAL HISTORY Procedure Laterality Date KNEE ARTHROSCOPY Right 12/07/14 repair meniscus PAST SURGICAL HISTORY OF Right 2011 ACL Reconstruction PAST SURGICAL HISTORY OF Right 1994 ORIF right tib fractures, hardware removed. FAMILY HISTORY Problem Relation Age of Onset Diabetes Mother Kidney Disease Mother Cancer Father neuroendocrine No Known Problems Brother Coronary Artery Disease Maternal Grandfather [place] at age 55 Social History Tobacco Use Smoking status: Never Smokeless tobacco: Never Vaping Use Vaping Use: Never used Substance Use Topics Alcohol use: Yes Alcohol/week: 2.5 standard drinks Types: 1 Cans of Beer (12oz) per week Comment: occasional Beer Drug use: No ALLERGIES No Known Allergies Current Outpatient Medications Medication Sig atorvastatin calcium (LIPITOR ORAL) Take by mouth. Take 1 tablet three times weekly. peg 3350-electrolytes (COLYTE) 240-22.72-6.72 -5.84 gram solution Take 4,000 mL by mouth one time only for 1 dose. No current facility-administered medications for this visit. Immunization History Administered Date(s) Administered COVID-19 vaccine, age 12+ yr ([employer] - PURPLE TOP) 10/17/2020 Influenza Seasonal Inj Quad Age 6 Mo - 64 Yrs 10/30/2021 Influenza Seasonal Inj Quadrivalent Age 4+ ccII4 and Pres Free 12/20/2019 Tdap (Age 7+) 02/09/2017 Objective BP 120/76 (BP Site: Right Arm, BP Position: Sitting, BP Cuff Size: Large Adult) Pulse 64 Temp 36.1 C (97 F) (Temporal) Resp 16 Ht 186.9 cm (6' 1.6 ) Wt 104.8 kg (231 lb) BMI 29.98 kg/m Physical Exam Constitutional: Appearance: Normal appearance. He is well-developed. HENT: Head: Normocephalic. Eyes: General: No scleral icterus. Extraocular Movements: Extraocular movements intact. Conjunctiva/sclera: Conjunctivae normal. Cardiovascular: Rate and Rhythm: Normal rate and regular rhythm. Heart sounds: No murmur heard. No gallop. Pulmonary: Effort: Pulmonary effort is normal. Breath sounds: Normal breath sounds. Abdominal: Palpations: Abdomen is soft. Tenderness: There is no abdominal tenderness. Musculoskeletal: General: Normal range of motion. Right lower leg: No edema. Left lower leg: No edema. Lymphadenopathy: Cervical: No cervical adenopathy. Skin: Comments: Scattered small daniels angiomas in torso. Neurological: General: No focal deficit present. Gait: Gait normal. Psychiatric: Mood and Affect: Mood normal. Assessment and Plan 1. Routine medical exam - ICD9: V70.0, ICD10: Z00.00 (primary diagnosis) - Counseled on healthy diet and regular exercise - Discussed need for and benefit of weight loss. BMI 29.98 kg/(m^2) - Colorectal cancer screening recommended - agrees to Colonoscopy - Risks/benefits of prostate cancer screening discussed. screening PSA ordered - Depression screening tool completed and reviewed with patient. Based on score and interview, patient is not at risk for depression and recommended no further intervention at this time. - Patient was counseled [id number] by myself (the billing provider) for the following immunizations and vaccine components, including side effects: COVID-19 and Influenza. Patient consents for immunization and understands risks and benefits. A VIS sheet on each immunization was given to the patient. - COMP METABOLIC PANEL - LIPID PANEL BASIC - TESTOSTERONE TOTAL - CBC 2. Other hyperlipidemia - ICD9: 272.4, ICD10: E78.49 3. Screening for prostate cancer - ICD9: V76.44, ICD10: Z12.5 - PSA/PROSTSPECAG SCRN 4. Screening for HIV without presence of risk factors - ICD9: V73.89, ICD10: Z11.4 - HIV 1 2 COMBO(AG/AB),WITH REFLEX TO DIFFERENTIATION 5. Encounter for hepatitis C screening test for low risk patient - ICD9: V73.89, ICD10: Z11.59 - HEP C AB IA W/CONF SCRN 6. Need for influenza vaccination - ICD9: V04.81, ICD10: Z23 - INFLUENZA VACCINE QUADRIVALENT 6 MO - 64 YRS IM 7. Special screening for malignant neoplasms, colon - ICD9: V76.51, ICD10: Z12.11 - PEG 3350 240 GRAM-ELECTROLYTES 22.72 GRAM-6.72 G-5.84 G POWDR FOR SOLN - COLONOSCOPY SCREENING Zak Anand MD [facility] OPEN ACCESS QUESTIONNAIRE 1. Are you currently having any new or unusual stomach/gastrointestinal issues at this time such as constipation, diarrhea, abdominal pain, rectal bleeding etc?No 2. Do you have any difficulty swallowing? No 3. Do you have any implanted devices such as a defibrillator, pacemaker, cardiac stents or deep brain stimulator? No 4. Do you take any Blood thinners such as Coumadin, Plavix, Xarelto, Eliquis, Brilinta or any other blood thinner? No 5. Do you have any new or past cardiac (heart) or pulmonary (lung) issues? No 6. Do you currently use any oxygen? No 7. Have you been hospitalized in the past 6 weeks? No 8. Have you had difficulty with anesthesia previously re: Difficult intubation? No Other difficulty or allergic reaction to anesthesia other than post op N/V? No 9. Are you on dialysis? No 10. Do you have any bleeding disorders such as hemophilia or Factor 5? No 11. Are you an Insulin Dependent Diabetic? No IF ANY OF THE TOP ELEVEN QUESTIONS ARE ANSWERED YES PLEASE SCHEDULE THE PATIENT FOR A CONSULT. N/A 12. Is the patient's BMI 40 or greater? No:Body mass index is 29.98 kg/m .. 13. Do you take any narcotics or anti-Anxiety medications? No 14. Do you use any illegal or recreational drugs including marijuana? No 15. Any alcohol use: occasional. 16. Have you been diagnosed with chronic liver disease such as hepatitis or cirrhosis? No 17. Do you have a seizure disorder? No 18. Do you have ulcerative colitis or Crohn's disease? No 19. Are you or could you be ? NA 20. Any other important health information we should be made aware of prior to your colonoscopy? No To be completed by LIP: Did patient have MAC anesthesia with a previous endoscopy procedure? No Patient appropriate for Open Access Colonoscopy: Yes: appropriate for Open Access Procedure Checklist: Prior to closing the encounter: Complete questionnaire: Yes Confirm Prep order has been Ordered/Pended: Yes. Patient's procedure could be delayed if not given the script for the prep. Please ensure the prep is escripted to pharmacy or printed. Instructions for the prep will print upon filing or pending this smartset. Please send all open access questionnaires to [facility] Sched Pool #[id number] documented in this encounter [facility] 09-25-2021 Miscellaneous Notes calls to request last visit note and demographics be faxed to Dr. Callahan's office for them to schedule colonoscopy. reports no referral needed. Faxed demographics and last OV noted per request to [phone]. Belkys Aparicio RN documented in this encounter [facility] Evaluation note Diagnosis Routine medical exam- Primary Routine general medical examination at a health care facility Other hyperlipidemia Screening for prostate cancer Special screening for malignant neoplasm of prostate Screening for HIV without presence of risk factors Special screening examination for other specified viral diseases Encounter for hepatitis C screening test for low risk patient Need for influenza vaccination Need for prophylactic vaccination and inoculation against influenza Special screening for malignant neoplasms, colon [facility] Diagnosis Arthritis of hip- Primary Unspecified arthropathy, pelvic region and thigh [facility] Diagnosis Pain in left hip Pain in joint, pelvic region and thigh [facility] Diagnosis Pain in left hip- Primary Pain in joint, pelvic region and thigh Primary osteoarthritis of left hip Primary localized osteoarthrosis, pelvic region and thigh [facility] Diagnosis Presence of left artificial hip joint- Primary documented in this encounter [facility] note* Diagnosis Presence of left artificial hip joint documented in this encounter [facility] note* Diagnosis Pain in left hip Pain in joint, pelvic region and thigh [facility] Outpatient Procedure (Routine) - Pending Review Specialty Diagnoses / Procedures Referred By Contac t Referred To Contact [facility] Diagnoses Special screening for malignant neoplasms, colon Procedures COLONOSCOPY SCREENING COLONOSCOPY FLX DX W/COLLJ SPEC WHEN PFRMD Zak Anand MD [address] [place] [address] [facility] [address] [place] [address] Referral ID Status Reason Start Date Expiration Date Visits Requested Visits Authorized [id number] Pending Review Auto-Generat ed Referral 10/30/2021 10/30/2022 1 1 [facility] for referral (narrative)* Diagnostic Procedure Only (Routine) - Closed Specialty Diagnoses / Procedures Referred By Contac t Referred To Contact XR IMAGING Diagnoses Pain in left hip Procedures XR HIP GENERAL 3V PELV/AP/LAT LEFT RADEX HIP UNILATERAL WITH PELVIS 2-3 VIEWS Jay Aiken V, DO [address] [place] [address] Xr Imaging Referral ID Status Reason Start Date Expiration Date V isits Requested Visits Authorized [id number] Closed Auto-Generate d Referral 12/09/2021 01/08/2023 1 1 [facility] for referral (narrative)* Diagnostic Procedure Only (Routine) - Closed Specialty Diagnoses / Procedures Referred By Contac t Referred To Contact XR IMAGING Diagnoses Pain in left hip Procedures XR HIP GENERAL 3V PELV/AP/LAT LEFT RADEX HIP UNILATERAL WITH PELVIS 2-3 VIEWS Charles Maki, DO [address] [place] [address] Xr Imaging Referral ID Status Reason Start Date Expiration Date V isits Requested Visits Authorized [id number] Closed Auto-Generate d Referral 08/11/2022 09/10/2023 1 1 [facility] for referral (narrative)* Diagnostic Procedure Only (Routine) - Closed Specialty Diagnoses / Procedures Referred By Contac t Referred To Contact XR IMAGING Diagnoses Pain in left hip Procedures XR HIP GENERAL 3V PELV/AP/LAT LEFT RADEX HIP UNILATERAL WITH PELVIS 2-3 VIEWS Charles Maki, DO [address] [place] [address] [place] [address] Referral ID Status Reason Start Date Expiration Date V isits Requested Visits Authorized [id number] Closed Auto-Generate d Referral 08/11/2022 09/10/2023 1 1 [facility] for visit Narrative* Diagnostic Procedure Only (Routine) - Closed Specialty Diagnoses / Procedures Referred By Contac t Referred To Contact XR IMAGING Diagnoses Pain in left hip Procedures XR HIP GENERAL 3V PELV/AP/LAT LEFT RADEX HIP UNILATERAL WITH PELVIS 2-3 VIEWS Jay Aiken V, DO [address] [place] [address] Xr Imaging Referral ID Status Reason Start Date Expiration Date V isits Requested Visits Authorized [id number] Closed Auto-Generate d Referral 12/09/2021 01/08/2023 1 1 [facility] for visit Narrative* Diagnostic Procedure Only (Routine) - Closed Specialty Diagnoses / Procedures Referred By Contac t Referred To Contact XR IMAGING Diagnoses Pain in left hip Procedures XR HIP GENERAL 3V PELV/AP/LAT LEFT RADEX HIP UNILATERAL WITH PELVIS 2-3 VIEWS Charles Maki, DO [address] [place] [address] [place] [address] Referral ID Status Reason Start Date Expiration Date V isits Requested Visits Authorized [id number] Closed Auto-Generate d Referral 08/11/2022 09/10/2023 1 1 [facility] Summary Purpose Family History No Family History Records FoundNo Family History Records FoundNo Family History Records FoundNo Family History Records Found Advance Directives No Advanced Directives Records FoundNo Advanced Directives Records FoundNo Advanced Directives Records FoundNo Advanced Directives Records Found Reason for Referral Specialty Diagnoses / Procedures Referred By Contac t Referred To Contact Rehabilitation Diagnoses Presence of left artificial hip joint Josué Chandler MD [facility] [place] [address] [place] [address] [address] [place] [address] Referral ID Status Reason Start Date Expiration Date V isits Requested Visits Authorized [id number] Pending Review 05/25/2023 05/24/2024 1 1 Specialty Diagnoses / Procedures Referred By Contac t Referred To Contact Jay Aiken V, DO [address] [place] [address] Referral ID Status Reason Start Date Expiration Date Visits Re quested Visits Authorized [id number] Closed 1 1 Additional Source Comments Source Comments (unrecognize d section and content) In the event this informatio n is protected by the Federal Confidentiality of Alcohol and Drug Abuse Patient Records regulations: The Federal rules restrict any use of the information to criminally investigate or prosecute any alcohol or drug abuse patient.[facility] the event this information is protected by the Federal Confidentiality of Alcohol and Drug Abuse Patient Records regulations: The Federal rules restrict any use of the information to criminally investigate or prosecute any alcohol or drug abuse patient.[facility] the event this information is protected by the Federal Confidentiality of Alcohol and Drug Abuse Patient Records regulations: The Federal rules restrict any use of the information to criminally investigate or prosecute any alcohol or drug abuse patient.[facility] the event this information is protected by the Federal Confidentiality of Alcohol and Drug Abuse Patient Records regulations: The Federal rules restrict any use of the information to criminally investigate or prosecute any alcohol or drug abuse patient.[facility] the event this information is protected by the Federal Confidentiality of Alcohol and Drug Abuse Patient Records regulations: The Federal rules restrict any use of the information to criminally investigate or prosecute any alcohol or drug abuse patient.[facility] the event this information is protected by the Federal Confidentiality of Alcohol and Drug Abuse Patient Records regulations: The Federal rules restrict any use of the information to criminally investigate or prosecute any alcohol or drug abuse patient.[facility] the event this information is protected by the Federal Confidentiality of Alcohol and Drug Abuse Patient Records regulations: The Federal rules restrict any use of the information to criminally investigate or prosecute any alcohol or drug abuse patient.[facility] the event this information is protected by the Federal Confidentiality of Alcohol and Drug Abuse Patient Records regulations: The Federal rules restrict any use of the information to criminally investigate or prosecute any alcohol or drug abuse patient.[facility] the event this information is protected by the Federal Confidentiality of Alcohol and Drug Abuse Patient Records regulations: The Federal rules restrict any use of the information to criminally investigate or prosecute any alcohol or drug abuse patient.[facility] Reason for Visit (unrecogniz ed section and content) Reason Comments Fax requested Reason Onset Date Comments Physical Immunizations 10/30/2021 Flu vaccination Reason Comments Left Hip Pain Reason Comments Patient Question Reason Comments New Reason Comments Orders disk request Reason Comments Physical Therapy Specialty Diagnoses / Procedures Referred By Contac t Referred To Contact Rehabilitation Diagnoses Presence of left artificial hip joint Josué Chandler MD [facility] [place] [address] [address] Referral ID Status Reason Start Date Expiration Date V isits Requested Visits Authorized [id number] Authorized 05/25/2023 05/24/2024 1 20 Care Teams (unrecognized sec tion and content) Manager Insurance Relationship Specialty Start Date End Date Zak Anand MD [address] [place] [address] PCP - General Internal Medicine 09/30/17 Manager Insurance Relationship Specialty Start Date End Date Zak Anand MD [address] [place] [address] PCP - General Internal Medicine 09/30/17 Manager Insurance Relationship Specialty Start Date End Date Zak Anand MD [address] [place] [address] PCP - General Internal Medicine 09/30/17 Manager Insurance Relationship Specialty Start Date End Date Zak Anand MD [address] [place] [address] PCP - General Internal Medicine 09/30/17 Manager Insurance Relationship Specialty Start Date End Date Zak Anand MD [address] [place] [address] PCP - General Internal Medicine 09/30/17 Manager Insurance Relationship Specialty Start Date End Date Zak Anand MD [address] [place] [address] PCP - General Internal Medicine 09/30/17 Manager Insurance Relationship Specialty Start Date End Date Zak Anand MD [address] [place] [address] PCP - General Internal Medicine 09/30/17 Manager Insurance Relationship Specialty Start Date End Date Zak Anand MD [address] [place] [address] PCP - General Internal Medicine 05/25/23 Manager Insurance Relationship Specialty Start Date End Date Zak Anand MD [address] [place] [address] PCP - General Internal Medicine 05/25/23 Manager Insurance Relationship Specialty Start Date End Date Zak Anand MD [address] [place], [place] [id number] PCP - General Internal Medicine 09/30/17 Manager Insurance Relationship Specialty Start Date End Date Zak Anand MD [address] [place] [address] PCP - General Internal Medicine 09/30/17 (unrecognized sect ion and content) No Status Records FoundNo Status Records FoundNo Status Records FoundNo Status Records Found INFORMATION SOURCE (unrecogn ized section and content) DATE CREATED AUTHOR 06/19/2022 [facility] DATE CREATED AUTHOR AUTHOR'S ORGANIZ ATION 04/01/2023 [facility] DATE CREATED AUTHOR AUTHOR'S ORGANIZ ATION 06/10/2023 [facility] DATE CREATED AUTHOR AUTHOR'S ORGANIZ ATION 06/13/2023 [facility] FOR RECORDS PERTAINING TO PATIENTS WHO ARE OR HAVE BEEN ENROLLED IN A CHEMICAL DEPENDENCY/SUBSTANCEABUSE PROGRAM, SOME INFORMATION MAY BE OMITTED. This clinical summary was aggregated from multiple sources. Caution should be exercised in using it in the provision of clinical care. This summary normalizes information from multiple sources, and as a consequence, information in this document may materially change the coding, format and clinical context of patient data. In addition, data may be omitted in some cases. CLINICAL DECISIONS SHOULD BE BASED ON THE PRIMARY CLINICAL RECORDS. [email or web address] provides no warranty or guarantee of the accuracy or completeness of information in this document.
[2023-12-21 10:41] LABS: AST(SGOT) 16 U/L (15-37); Alanine Aminotransfer ALT/SGPT 23 U/L (16-61); Albumin, Serum 3.8 g/dL (3.2-5.0); Alkaline Phosphatase 38 U/L (45-117); Anion Gap 7 (5-15); BUN 21 mg/dL (7-18); BUN/Creat Ratio 15.9 RATIO (10-20); Bilirubin, Direct 0.15 mg/dL (0.00-0.30); Chloride 108 mmol/L (98-107); Cholesterol 191 mg/dL (200); Creatinine, Serum 1.32 mg/dL (0.70-1.30); EST Glomerular Filtration Rate 61 mL/min (>60); Est Glom Filt Rate - Afr Amer 73 mL/min (>60); Globulin 3.7 g/dL (2.2-4.2); Glucose 90 mg/dL (74-106); High Density Lipoprotein 48 mg/dL; Potassium 4.1 mmol/L (3.5-5.1); Protein, Total 7.5 g/dL (6.4-8.2); Sodium Level 140 mmol/L (136-145); Triglycerides 124 mg/dL; Very Low Density Lipoprotein 25 mg/dL (5-40)
== END | disposition home or self-care (01) ==
LOC: MTLAB 07:03
PROVIDERS: PCP Internal Medicine; Referring Provider Internal Medicine Cardiovascular Disease; Visit Provider Internal Medicine Cardiovascular Disease
DX: E78.5 Hyperlipidemia, unspecified (principal)
CPT/HCPCS: 36415; 80048; 80061; 80076

== ENCOUNTER → 2024-10-27 | Outpatient (CLI) | payer OTHER, SELFPAY ==
[2024-10-27 10:38] LABS: AST(SGOT) 20 U/L (<=37); Alanine Aminotransfer ALT/SGPT 19 U/L (<=46); Albumin, Serum 4.3 g/dL (3.5-5.0); Alkaline Phosphatase 41 U/L (40-129); Anion Gap 11 (5-15); BUN 19 mg/dL (4-19); BUN/Creat Ratio 14.5 RATIO (10-20); Bilirubin, Direct 0.18 mg/dL (0.00-0.30); Calcium,Total 9.5 mg/dL (7.6-11.0); Carbon Dioxide 24.9 mmol/L (21.0-32.0); Chloride 104 mmol/L (98-108); Cholesterol 219 mg/dL (<=200); Globulin 2.8 g/dL (2.2-4.2); Glucose 94 mg/dL (70-99); Hematocrit 40.6 % (40-54); Hemoglobin 13.8 g/dL (13.0-16.5); Immature Granulocytes Count 0.020 X10^3/uL (0.0-0.0); Low Density Lipoprotein Calc. 147 mg/dL; Magnesium 2.2 mg/dL (1.5-2.2); Mean Corp Hgb Conc 34.0 g/dL (32-36); Mean Corpuscular Volume 91.0 fL (80-94); Mean Platelet Vol. 9.6 fl (6.2-12.0); NRBC Flagged by Analyzer 0 % (0-5); Platelet Count 302 K/mm3 (150-450); Potassium 4.5 mmol/L (3.3-5.1); RBC Distribution Width CV 12.5 % (11.6-14.6); RBC Distribution Width SD 41.1 fl (35.1-43.9); Red Blood Count 4.46 M/mm3 (4.6-6.2); Triglycerides 112 mg/dL; Very Low Density Lipoprotein 22 mg/dL (5-40); White Blood Count 3.9 K/mm3 (4.4-11.0); cholesterol:hdl ratio screen 4.40
== END | disposition home or self-care (01) ==
LOC: MTLAB 07:11
PROVIDERS: PCP Internal Medicine; Referring Provider Internal Medicine Cardiovascular Disease; Visit Provider Internal Medicine Cardiovascular Disease
DX: E78.00 Pure hypercholesterolemia, unspecified (principal); R06.09 Other forms of dyspnea
CPT/HCPCS: 36415; 80048; 80061; 80076; 83735; 85025